=== PATIENT | female | born 1945 | race Caucasian/White ===

== ENCOUNTER → 2020-10-12 08:47 | Outpatient (CLI) | payer OTHER, SELFPAY ==
--- NOTE | ~2020-10-12 | DEXA_ITS ---
Bone Density Report Name: Daysi Walters Age: 75 Sex: Female Ethnicity: White Date of : 1945 Indication: osteopenia; parental hip fracture; hysterectomy; postmenopausal Referring Provider: WALTER MCFARLAND Study: Bone densitometry was performed. Exam Date: October 12, 2020 Accession number: [id number] Bone Density: Region BMD T-score Z-score Classification AP Spine (L1-L4) 1.119 0.7 3.0 Normal Femoral Neck (Left) 0.673 -1.6 0.4 Osteopenia Total Hip (Left) 0.875 -0.5 1.2 Normal Femoral Neck (Right) 0.643 -1.9 0.2 Osteopenia Total Hip (Right) 0.812 -1.1 0.6 Osteopenia Total Hip Mean 0.844 -0.8 0.9 Normal World Health Organization criteria for BMD impression classify patients as: Normal (T-score at or above -1.0), Osteopenia (T-score between -1.0 and -2.5), or Osteoporosis (T-score at or below -2.5). 10-year Fracture Risk(1): Major Osteoporotic Fracture 19% Hip Fracture 8.5% Reported Risk Factors: [place] (), Neck BMD=0.643, BMI=31.0, parental fracture (1) FRAX(R) Version 3.08. Fracture probability calculated for an untreated patient. Fracture probability may be lower if the patient has received treatment. Previous Exams: Region Exam Age BMD T-score BMD Change BMD Change Date g/cm2 vs Baseline vs Previous AP Spine(L1-L4) 10/12/2020 75 1.119 0.7 0.061* 0.061* 03/16/2016 71 1.058 0.1 Total Hip(Left) 10/12/2020 75 0.875 -0.5 0.018 0.018 03/16/2016 71 0.857 -0.7 Total Hip(Right) 10/12/2020 75 0.812 -1.1 0.007 0.007 03/16/2016 71 0.804 -1.1 *Denotes significance at 95% confidence level, LSC for AP Spine = 0.022 g/cm2, LSC for Total Hip = 0.027 g/cm2 Clinical Information Provided by Patient: Parent has had a hip fracture Has the following medical conditions: Hysterectomy Patient maximum height was 62.0 Menopause Age: 47 No regular weight bearing exercise Drinks caffeinated beverages Onset of menses at age 14 Number of children 1 Impression: The patient has low bone mass, based on the Right Femoral Neck T-score. The patient has an estimated ten-year risk of hip fracture of 8.5% and an estimated ten-year risk of major fracture of 19%, based on the WHO FRAX algorithm. The patient has risk factors, including: parental hip fracture. No significant bone loss was observed. Discussion: BONE DENSITY IS LOW AT ONE OR MORE SKELETAL SITES. THE PATIENT'
--- NOTE | ~2020-10-12 | MM_ITS ---
EXAMINATION: MM screening [facility] w justa HISTORY: Screening mammogram TECHNIQUE: Craniocaudal and mediolateral oblique 3-D tomosynthesis images were obtained and synthetic 2-D images were generated. CAD analysis was submitted and interpreted. COMPARISON: No prior mammogram is available for comparison at this institution. BREAST PARENCHYMAL COMPOSITION: There are scattered areas of fibroglandular density. FINDINGS: Diminished size and density of previously reported benign cyst posterior outer mid left efren ast since 05/25/2019. There is no evidence of suspicious mass, calcification, or architectural distorti on to suggest malignancy in either breast. There has been no suspicious interval change. IMPRESSION: 1. No mammographic evidence of malignancy. 2. Recommend routine screening mammography in one year. BI-RADS Category 2: Benign finding(s). Reviewed, dictated and finalized at location A.
== END ==
PROVIDERS: Visit Provider Family Medicine
DX: Z12.31 Encounter for screening mammogram for malignant neoplasm of breast (principal); Z78.0 Asymptomatic menopausal state; M85.851 Other specified disorders of bone density and structure, right thigh; M85.852 Other specified disorders of bone density and structure, left thigh
CPT/HCPCS: 77063; 77067; 77080

== ENCOUNTER → 2021-02-18 10:20 | Outpatient (CLI) | payer OTHER, SELFPAY ==
--- NOTE | ~2021-02-18 | XR_ITS ---
XR chest 2V DATE: 02/18/2021 10:43 INDICATION: Shortness of breath, chest congestion. Positive Covid test. TECHNIQUE: PA and lateral views COMPARISON: 04/19/2017 two-view chest FINDINGS: Borderline heart size. Aortic arch calcification. No hilar or mediastinal enlargement. No pulmonary infiltrate or consolidation or pleural effusion or pulmonary vascular congestion or pneu mothorax. Mild osteoarthritis at the left glenohumeral joint. Mild degenerative spurring of the thoracic and ernesto mbar spine. IMPRESSION: No active pulmonary disease Reviewed, dictated and finalized at location B. IMPRESSION: No active pulmonary disease
== END ==
PROVIDERS: PCP Family Medicine
DX: U07.1 COVID-19 (principal); R09.89 Other specified symptoms and signs involving the circulatory and respiratory systems; R06.02 Shortness of breath
CPT/HCPCS: 71046

== ENCOUNTER → 2021-06-18 15:40 | Outpatient (CLI) | payer OTHER, SELFPAY ==
--- NOTE | ~2021-06-18 | XR_ITS ---
XR knee RT min 4V 06/18/2021 15:55 Indication: Right knee pain Procedure: 4 views of the right knee Comparison: No prior studies for comparison. Findings: No fracture, subluxation or dislocation. Moderate joint effusion. No significant joint spac e narrowing. Impression: 1: Moderate joint effusion. Reviewed, dictated and finalized at location B. ALTERATIONS TAILOR Impression: 1: Moderate joint effusion.
== END ==
PROVIDERS: PCP Nurse Practitioner Gerontology; Visit Provider Nurse Practitioner Gerontology
DX: M25.561 Pain in right knee (principal)
CPT/HCPCS: 73564

== ENCOUNTER → 2021-07-15 14:05 | Outpatient (CLI) | payer OTHER, SELFPAY ==
--- NOTE | ~2021-07-15 | MR_ITS ---
EXAMINATION: MR knee RT wo con DATE: 07/15/2021 15:11 INDICATION: Right knee pain TECHNIQUE: Magnetic resonance imaging (MRI) of the right knee was performed without intravenous contr ast. Sequences included coronal PD-weighted FSE, coronal PD-weighted FS FSE, sagittal T2-weighted FS E, sagittal PD-weighted FS FSE and axial PD weighted fat saturated FSE. COMPARISON: None. FINDINGS: Medial compartment: Medial meniscus is normal. Deep chondral fissure at the anterior aspect of the medial tibial plateau. Additional less severe chondral fissuring and chondral surface regularity at the anterior weightbear ing medial femoral condyle. Lateral compartment: Small longitudinal horizontal tear at the junction of the anterior horn and anterior body of the late ral meniscus. Partial-thickness chondral fissure which appears to involve less than 50% the cartilage thickness at the central to posterior lateral tibial plateau as well as at the central weightbearing lateral femoral condyle. Patellofemoral compartment: Articular cartilage is normal. Ligaments and tendons: Anterior and posterior cruciate ligaments are normal. The medial collateral ligament and fibular heidi ateral ligament complex are normal. The extensor mechanism is normal. The visualized medial and later al hamstring tendons as well as the iliotibial band are normal. Fluid: Moderate-sized right knee joint effusion. Incomplete suprapatellar plical band. No loose osteochondra l bodies identified. Osseous/other: Normal marrow signal. No fracture or pathologic marrow replacing process. IMPRESSION: 1. Small longitudinal horizontal tear at the junction of the body and anterior horn of the lateral me niscus. 2. 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 3. Moderate-sized right knee joint effusion. Reviewed, dictated and finalized at location A. SH MENDER IMPRESSION: 1. Small longitudinal horizontal tear at the junction of the body and anterior horn of the lateral meniscus. 2. 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 3. Moderate-sized right knee joint effusion.
== END ==
PROVIDERS: PCP Family Medicine; Visit Provider Family Medicine
DX: M23.91 Unspecified internal derangement of right knee (principal); S83.281A Other tear of lateral meniscus, current injury, right knee, initial encounter; M17.11 Unilateral primary osteoarthritis, right knee; M94.261 Chondromalacia, right knee; M25.461 Effusion, right knee
CPT/HCPCS: 73721

== ENCOUNTER → 2021-12-02 15:30 | Outpatient (CLI) | payer OTHER, SELFPAY ==
--- NOTE | ~2021-12-02 | MM_ITS ---
EXAMINATION: MM screening [facility] BI w justa HISTORY: Screening mammogram TECHNIQUE: Craniocaudal and mediolateral oblique 3-D tomosynthesis images were obtained and synthetic 2-D images were generated. CAD analysis was submitted and interpreted. COMPARISON: 10/12/2020, 06/07/2019, 05/25/2019 BREAST PARENCHYMAL COMPOSITION: There are scattered areas of fibroglandular density. FINDINGS: There are stable left breast masses, consistent with benign findings. There is no suspiciou s mass, calcification, or architectural distortion to suggest malignancy in either breast. There has been no suspicious interval change. IMPRESSION: 1. No mammographic evidence of malignancy. 2. Recommend routine screening mammography in one year. BI-RADS Category 2: Benign finding(s). Reviewed, dictated and finalized at location A.
== END ==
PROVIDERS: PCP Family Medicine; Visit Provider Family Medicine
DX: Z12.31 Encounter for screening mammogram for malignant neoplasm of breast (principal)
CPT/HCPCS: 77063; 77067

== ENCOUNTER → 2022-01-27 10:28 | Outpatient (CLI) | payer OTHER, SELFPAY ==
--- NOTE | ~2022-01-27 | XR_ITS ---
EXAMINATION: XR chest 2V Exam Date/Time: 01/27/2022 10:48 CDT HISTORY: OTHER ASSISTED DRUG THERAPY Comparison: 02/10/2021. RESULT: Lines, tubes, and devices: None. Lungs and pleura: Ill-defined subsegmental bibasilar opacities. Cardiomediastinal silhouette: Stable. Other: No acute osseous or upper abdominal finding. IMPRESSION: Bibasilar opacities, commonly attributed to atelectasis. Infection not excluded. Reviewed, dictated and finalized at location K. IMPRESSION: Bibasilar opacities, commonly attributed to atelectasis. Infection not excluded .
== END ==
PROVIDERS: PCP Family Medicine
DX: Z51.81 Encounter for therapeutic drug level monitoring (principal); Z79.899 Other long term (current) drug therapy; R91.8 Other nonspecific abnormal finding of lung field
CPT/HCPCS: 71046

== ENCOUNTER 2022-08-25 14:41 | Outpatient (CLI) | payer OTHER, SELFPAY ==
--- NOTE | ~2022-08-25 | XR_ITS ---
EXAMINATION: XR tibia fibula RT 2V DATE: 08/25/2022 15:13 INDICATION: Medial right knee pain. TECHNIQUE: 2 views of right tibia and fibula were obtained. COMPARISON: Right knee radiographs 03/25/2022 FINDINGS: There is a total right knee arthroplasty without patellar resurfacing in near-anatomic alig nment. No fracture. No periprosthetic lucency to suggest loosening or infection. IMPRESSION: 1. Total right knee arthroplasty in near-anatomic alignment. Reviewed, dictated and finalized at location A.
--- NOTE | ~2022-08-25 | XR_ITS ---
EXAMINATION: XR knee RT min 4V DATE: 08/25/2022 15:14 INDICATION: Medial right knee pain. TECHNIQUE: 4 views of right knee were obtained. COMPARISON: Right knee radiographs 03/25/2022 FINDINGS: There is a total right knee arthroplasty without patellar resurfacing in near-anatomic alig nment. No periprosthetic lucency to suggest loosening or infection. No fracture. There are tiny osteo phytes of the patella. No knee joint effusion. IMPRESSION: 1. Total right knee arthroplasty in near-anatomic alignment. Reviewed, dictated and finalized at location A.
== END 2022-08-25 14:42 | disposition home or self-care (01) ==
LOC: ANHIMG 14:49
PROVIDERS: PCP Family Medicine; Visit Provider Nurse Practitioner Gerontology
DX: M25.569 Pain in unspecified knee (principal); M79.606 Pain in leg, unspecified; Z96.651 Presence of right artificial knee joint
CPT/HCPCS: 73564; 73590

== ENCOUNTER → 2023-01-15 13:55 | Outpatient (CLI) | payer OTHER, SELFPAY ==
--- NOTE | ~2023-01-15 | MM_ITS ---
EXAMINATION: MM screening [facility] BI w justa HISTORY: Screening mammogram TECHNIQUE: Craniocaudal and mediolateral oblique 3-D tomosynthesis images were obtained and synthetic 2-D images were generated. CAD analysis was submitted and interpreted. COMPARISON: 12/02/2021, 05/25/2019 BREAST PARENCHYMAL COMPOSITION: There are scattered areas of fibroglandular density. FINDINGS: No suspicious mass, calcification, or architectural distortion are identified in either efren ast to suggest malignancy. There has been no suspicious interval change. IMPRESSION: 1. No mammographic evidence of malignancy. 2. Recommend routine screening mammography in one year. BI-RADS Category 1: Negative Reviewed, dictated and finalized at location A.
== END ==
PROVIDERS: PCP Physician Assistant; Visit Provider Physician Assistant
DX: Z12.31 Encounter for screening mammogram for malignant neoplasm of breast (principal)
CPT/HCPCS: 77063; 77067

== ENCOUNTER 2023-01-18 08:00 | Outpatient (RCR) | payer OTHER, SELFPAY ==
--- NOTE | 2022-10-27 10:20 | PTOPEVAL1 ---
Assessment and note entered by Gabbi Perez, PT Evaluation Information Assessment Status Evaluation Diagnosis Pain in R knee and leg Onset prior to surgery chronic pain Subjective Information Patient reports she has attempted physical therapy in two other clinics. Patient currently using cane for gait and reporting pain as 10/10 in R knee and into lower leg. Pain causes difficulty with chores at home and ambulating increased distances in community. Patient reports prior to her knee surgery she would walk 4 to 5 miles a day . Patient goal is to decrease pain and reutrn to walking increased distances. Reported Pain Level Pain Score 10: Self Report Additional Pain Score Comments patient reports pain is worsened by standing, and canbe relieved with gentle movement. Assessment PT Clinical Summary Patient is 77 year old female referred to physical therapy due to R knee and radiating R lower leg pain. Patient currently rating pain as 10/10 start of session with relief in pain to 5/10 following therapeutic exercises. Patient presents with the following impairments: limited knee extension, back pain and limited back range of motion, R hip flexor/ extensor/ abductor weakness. Impairments are causing abnormalities in gait jody/speed and ability to ambulate increased distances in community. Radicular symptoms reported down R lower leg with lumbar flexion/extension. Recommending skilled physical therapy intervention 2x/wk for 4 wks to improve R knee and lumbar range of motion, improve R hip and knee strength in order to reduce pain and improve safety, step quality, and gait speed with community mobility. Plan of Care Interventions Gait Training,Hot Pack/Cold Pack,Manual Therapy, Neuro Re-education,Patient/Caregiver Education, Therapeutic Activities,Therapeutic Exercise Other Interventions cupping, taping, IASTM PT Services Indicated Yes Treatment Frequency and 2x/wk for 4 wks Duration These treatments will address the objective and functional deficits as defined above. The patient will be advanced safely and appropriately in order for the patient to progress towards his/her prior level of function. Additional exercises will be introduced and as well as a comprehensive home exercise program upon discharge, if needed, ?to ensure carryover of functional gains achieved in the clinic. This treatment plan has been reviewed and agreement upon by the patient.
--- NOTE | 2022-10-27 10:20 | OPREHPOC ---
Outpatient Therapy Plan of Care This is a Multidisciplinary Plan of Care that may contain components documented by all disciplines (PT, OT, and ST.) PT Problem 1 PT Problem #1 Knowledge Deficit PT Goal 1 Goal patient will demonstrate independence with home exercise program PT Problem 2 PT Problem #2 Pain PT Goal 1 Goal Patient will report pain of 4/10 with walking using straight cane PT Problem 3 PT Problem #3 Impaired Range of Motion PT Goal 1 Goal Patient will increase R knee extension to -2 PT Problem 4 PT Problem #4 Impaired Gait PT Goal 1 Goal Patient will ambulate 300 ft during 2 minute walk test with use of least restrictive device PT Goal 2 Goal Patient will report improved community ambulation tolerating 10 minutes gait with use of cane PT Problem 5 PT Problem #5 Impaired Strength PT Goal 1 Goal Patient will perform 20 reps RLE straight leg raise due to improvements in quad strength PT Goal 2 Goal Patient will perform RLE single leg stance for 10 seconds
--- NOTE | 2022-11-19 10:57 | PTOPPROG ---
Assessment and note entered by Sophie Martinez, PT, DPT Evaluation Information Assessment Status Progress Diagnosis Pain in R knee and leg Onset prior to surgery chronic pain Subjective Information Pt states her knee is not doing good. She states when she first stands up it feels like her youngblood bone is shoved up under her knee cap . She reports good compliance with her HEP. She states she is walking a little bit better, just not initially. Pt reports her pain as a 10/10 when looking at the Jeff and Zamorano pain scale. Assessment PT Clinical Summary Daysi presents to therapy today for her progress report following 7 visits of skilled therapy to treat her R knee and leg pain following a R TKA in January of 2022. Today she demonstrates slight improvements of her R knee and hip strength, improvements in her gait speed, and less pain today with her sit to stands. She continues to have RLE weakness, gait deviations, and decreased functional mobility all reportedly d/t pain. She demonstrates decreased carry over in between sessions which might be limiting her progress. She is progressing slowly towards her goals but reports excellent compliance with her HEP. Continuation of skilled therapy services are indicated to address the remaining deficits, to manage pain, and to return to PLOF without limitations. Plan of Care Interventions Gait Training,Hot Pack/Cold Pack,Manual Therapy, Neuro Re-education,Patient/Caregiver Educati, Therapeutic Activities,Therapeutic Exercise Other Interventions cupping, taping, IASTM PT Services Indicated Yes Treatment Frequency and 2x/wk for 4 wks Duration These treatments will address the objective and functional deficits as defined above. The patient will be advanced safely and appropriately in order for the patient to progress towards his/her prior level of function. Additional exercises will be introduced and as well as a comprehensive home exercise program upon discharge, if needed, ?to ensure carryover of functional gains achieved in the clinic. This treatment plan has been reviewed and agreement upon by the patient.
--- NOTE | 2022-12-02 10:48 | PCPTNOTE ---
Pt rescheduled her appt today for Wednesday at 10:15.
--- NOTE | 2022-12-23 08:53 | PTOPPROG ---
Assessment and note entered by Sophie Martinez, PT, DPT Evaluation Information Assessment Status Progress Diagnosis Pain in R knee and leg Onset prior to surgery chronic pain Subjective Information Pt states she is walking better but when she gets up she initially has excruciating pain. She continues to reports tightness and a sharp pain initially upon standing. She states when she walks it loosens up a bit. Pt reports a 0-2/10 in sitting, and a 8-9/10 initially upon standing. Assessment PT Clinical Summary Daysi presents to therapy today for her progress report following 14 visits of skilled therapy to treat her R knee and leg pain following a R TKA in January of 2022. Today she demonstrates improved knee ROM from 0-132 degs, improved gait speed during the 2 min walk distance, and improved hip strength in all planes. She continues to have decreased hamstring strength, increased knee valgus during all functional movements, and decreased strength on the L when compared to the R. Continuation of skilled services are indicated to progress towards therapy goals. Plan of Care Interventions Gait Training,Hot Pack/Cold Pack,Manual Therapy, Neuro Re-education,Patient/Caregiver Educati, Therapeutic Activities,Therapeutic Exercise Other Interventions cupping, taping, IASTM PT Services Indicated Yes Treatment Frequency and 2x/wk for 4 wks Duration These treatments will address the objective and functional deficits as defined above. The patient will be advanced safely and appropriately in order for the patient to progress towards his/her prior level of function. Additional exercises will be introduced and as well as a comprehensive home exercise program upon discharge, if needed, ?to ensure carryover of functional gains achieved in the clinic. This treatment plan has been reviewed and agreement upon by the patient.
--- NOTE | 2022-12-30 08:37 | PCPTNOTE ---
Pt's appt was cancelled due to no auth.
--- NOTE | 2023-01-11 10:15 | PCPTNOTE ---
Pt cacelled this morning due to illness.
--- NOTE | 2023-01-18 09:03 | PTOPPROG ---
Assessment and note entered by Sophie Martinez, PT, DPT Evaluation Information Assessment Status Evaluation Diagnosis Pain in R knee and leg Onset prior to surgery chronic pain Subjective Information Pt states her knee is still tight, but not as tight as it has been. She states it still hurt immediately upon standing but not like it has. Assessment PT Clinical Summary Daysi presents to therapy today for her progress report following 20 visits of skilled therapy to treat her R knee and leg pain following a R TKA in January of 2022. Today she demonstrates active knee ROM this is WNL and has good knee strength. She continues to demonstrates increased knee valgus during sit to stands, ambulation, and with functional transfers. She demonstrates decreased hip strength on the R. Continuation of skilled therapy services are indicated to continue progressing hip strength and limiting compensations. Plan of Care Interventions Gait Training,Hot Pack/Cold Pack,Manual Therapy, Neuro Re-education,Patient/Caregiver Educati, Therapeutic Activities,Therapeutic Exercise Other Interventions cupping, taping, IASTM PT Services Indicated Yes Treatment Frequency and 2x/wk for 8 visits pending follow up with ortho Duration These treatments will address the objective and functional deficits as defined above. The patient will be advanced safely and appropriately in order for the patient to progress towards his/her prior level of function. Additional exercises will be introduced and as well as a comprehensive home exercise program upon discharge, if needed, ?to ensure carryover of functional gains achieved in the clinic. This treatment plan has been reviewed and agreement upon by the patient.
--- NOTE | 2023-01-18 11:10 | PCPTNOTE ---
This treatment is being continued on visit number [id number]. Please see documentation on both accounts to view progress. Completed interventions, outcomes, and problems have been marked as Inactive to facilitate the copying of the Care plan routine for recurring accounts.
== END 2023-01-20 14:08 | disposition still patient (30) ==
LOC: ANHGOSHPT 08:00
PROVIDERS: PCP Family Medicine; Visit Provider Physician Assistant
DX: M25.569 Pain in unspecified knee (principal); M79.606 Pain in leg, unspecified
CPT/HCPCS: 97110; 97112; 97116; 97140; 97162; 97530; 99199

== ENCOUNTER 2023-03-24 11:28 | Outpatient (RCR) | payer OTHER, SELFPAY ==
--- NOTE | 2023-01-18 11:10 | PCPTNOTE ---
The treatment documented on this account is a continuation of the treatment documented on visit number [id number]. Please see documentation on both accounts to view progress. The Plan of Care has been transitioned and updated within the new V#. I have addressed and agree with the discipline specific Problems, Interventions, and Goals for the current certification period. Completed interventions, outcomes, and problems have been marked as Inactive to facilitate the copying of the Care plan routine for recurring accounts.
--- NOTE | 2023-03-22 08:38 | PTOPDC ---
Assessment and note entered by Sophie Martinez, PT, DPT Evaluation Information Assessment Status Discharge - Pt Not Present Subjective Information Pt last attended therapy on 01/13/23 at that time she was going to see ortho and stated she would come back if other requested. The clinic has not heard from the pt at this time. Assessment PT Clinical Summary Daysi completed 19 visits of skilled therapy from 10/27/22 to 01/09/23. She will be discharged at this time d/t no follow up with the clinic.
== END 2023-03-24 11:32 | disposition home or self-care (01) ==
LOC: ANHGOSHPT 11:28
PROVIDERS: PCP Family Medicine; Visit Provider Physician Assistant
DX: M25.569 Pain in unspecified knee (principal); M79.606 Pain in leg, unspecified
CPT/HCPCS: 99199

== ENCOUNTER 2023-12-21 11:27 | Outpatient (CLI) | payer OTHER, SELFPAY ==
[2023-12-21 12:34] LABS: Influenza A QL RT-PCR Negative (Negative); Influenza B QL RT-PCR Negative (Negative); RSV RNA, RT-PCR Negative (Negative); SARS-CoV-2 RNA PCR Positive (Negative)
== END 2023-12-21 11:28 | disposition home or self-care (01) ==
LOC: ANHLAB 11:28
PROVIDERS: PCP Family Medicine; Visit Provider Physician Assistant
DX: J02.9 Acute pharyngitis, unspecified (principal); Z20.822 Contact with and (suspected) exposure to COVID-19
CPT/HCPCS: 87637

== ENCOUNTER 2024-01-18 09:15 | Outpatient (RCR) | payer OTHER, SELFPAY ==
--- NOTE | 2023-12-31 09:51 | OPREHPOC ---
Outpatient Therapy Plan of Care This is a Multidisciplinary Plan of Care that may contain components documented by all disciplines (PT, OT, and ST.) PT Problem 1 PT Problem #1 Knowledge Deficit PT Goal 1 Goal 1. Patient will perform independent HEP Target Visit 3 PT Problem 2 PT Problem #2 Impaired Strength PT Goal 1 Goal 1. Pelvic floor strength 2/5 to decrease incontinence 2. Pelvic floor endurance 5 seconds to decrease incontinence 3. Patient able to contract abdominal muscles without compensation Target Visit 5 PT Problem 3 PT Problem #3 Impaired Functional ADLs PT Goal 1 Goal 1. Patient will report fecal incontinence no more than 1 time per month to allow for grocery shopping etc. Target Visit 5
--- NOTE | 2023-12-31 09:51 | PTOPEVAL1 ---
Assessment and note entered by Vee Melendrez DPT Evaluation Information Assessment Status Evaluation Diagnosis fecal incontinence ICD-10 Condition Codes (PT) Weakness R53.1,Urge incontinence N39.41 Subjective Information Pt reports fecal smearing/incontinence approximately 30 minutes following a BM. Unsure when it started. Voids 4-5 times a day and wakes up once at night. Can hold urge to void up to 30 minutes but often less. Typically does not have pain with urination. Leaks urine approximately 1 time a month and is a small drops when it occurs. BM was every other day until starting benefiber which has increased to daily. Smearing occurs every time. History of pelvic pain with pap smear, exam, etc. Pt has been 1 time, vaginal delivery. Unsure if she had any complications. Hysterectomy 30 years ago. No b/b issues. Reports she sometimes has a fear to go in the community or grocery shopping etc. due to the incontinence. Patient goal: know why I am getting the incontinence Diet: some water, vitamin water, small cup of decaf coffee in the morning, diet sunkist orange, intermittent unsweet tea. No alcohol. Eats 3 meals a day, snack in morning and afternoon (lots of chocolate and peanut butter). Does not eat meat often and not many dairy products. Some fruit. Waffles for breakfast, lunch is often soup, frozen dinners or dinner from a friend). Reported Pain Level Pain Score 0: Self Report Assessment PT Clinical Summary The patient is presenting to skilled therapy with fecal incontinence and very intermittent urge incontinence. She presents with decreased core strength and significantly increased pelvic floor strength (unable to contract on exam) which are contributing to her incontinence. She will highly benefit from therapy to address her impairments in order to reduce incontinence and improve function . Plan of Care Interventions Manual Therapy,Neuro Re-education,Patient/ Caregiver Education,Therapeutic Activities, Therapeutic Exercise PT Services Indicated Yes Treatment Frequency and 1 time a week for 5 visits Duration These treatments will address the objective and functional deficits as defined above. The patient will be advanced safely and appropriately in order for the patient to progress towards his/her prior level of function. Additional exercises will be introduced and as well as a comprehensive home exercise program upon discharge, if needed, ?to ensure carryover of functional gains achieved in the clinic. This treatment plan has been reviewed and agreement upon by the patient.
--- NOTE | 2024-01-27 14:04 | PCPTNOTE ---
Pt called to cancel appointment due to back pain.
--- NOTE | 2024-02-04 09:32 | PCPTNOTE ---
Patient called to cancel appointment 02/04/24 due to back pain. Will reschedule at a later date.
--- NOTE | 2024-03-28 13:46 | PTOPDC ---
Assessment and note entered by Vee Melendrez DPT Evaluation Information Assessment Status Discharge - Pt Not Present Diagnosis fecal incontinence ICD-10 Condition Codes (PT) Weakness R53.1,Urge incontinence N39.41 Subjective Information - Assessment PT Clinical Summary Patient has not attended therapy since 01/18/24. She will be discharged this date and need a new script to resume in the future. Plan of Care PT Services Indicated No
== END 2024-03-28 14:48 | disposition home or self-care (01) ==
LOC: ANHPT 09:15
PROVIDERS: PCP Family Medicine; Visit Provider Nurse Practitioner
DX: R15.9 Full incontinence of feces (principal); M62.89 Other specified disorders of muscle
CPT/HCPCS: 97110; 97112; 97161; 97530

== ENCOUNTER 2024-01-18 09:53 | Outpatient (CLI) | payer OTHER, SELFPAY ==
--- NOTE | ~2024-01-18 | MM_ITS ---
EXAMINATION: MM screening melisa BI w justa HISTORY: Screening TECHNIQUE: Craniocaudal and mediolateral oblique 3-D tomosynthesis images were obtained and synthetic 2-D images were generated. CAD analysis was submitted and interpreted. COMPARISON: Comparison to multiple prior studies sequentially, with oldest reviewed study dated 04/23. BREAST PARENCHYMAL COMPOSITION: Not dense: There are scattered areas of fibroglandular density. FINDINGS: There is no evidence of suspicious mass, calcification, or architectural distortion to sugg est malignancy in either breast. There has been no suspicious interval change. IMPRESSION: 1. No mammographic evidence of malignancy. 2. Recommend routine screening mammography in one year. BI-RADS Category 1: Negative Reviewed, dictated and finalized at location B.
== END 2024-01-18 09:54 ==
LOC: MICIMG 09:54
PROVIDERS: PCP Family Medicine; Visit Provider Family Medicine
DX: Z12.31 Encounter for screening mammogram for malignant neoplasm of breast (principal)
CPT/HCPCS: 77063; 77067

== ENCOUNTER 2024-07-07 07:21 | Outpatient (CLI) | payer MEDICARE, SELFPAY ==
--- NOTE | ~2024-07-07 | XR_ITS ---
EXAMINATION: XR_CERV2-3V_CR DATE: 07/07/2024 08:07 INDICATION: Neck pain. TECHNIQUE: 3 views of cervical spine were obtained. COMPARISON: None. FINDINGS: There is 4 degrees levocurvature of cervical spine. Vertebral body heights are normal. Ther e is mildly decreased disc height at C6-C7. There is multilevel severe facet joint osteoarthritis. Th ere is multilevel uncovertebral joint osteoarthritis, severe on the left at C5-C6 and bilaterally at C6-C7. No central canal stenosis or prevertebral soft tissue swelling. IMPRESSION: 1. Moderate cervical spondylosis. Reviewed, dictated and finalized at location A. ARD PEELER
--- OUTSIDE RECORDS SUMMARY | 2024-07-07 07:32 | XMS_ITS | Referral Summary ---
Author Organization [facility] al Address [address] [place] [address] Care Team Providers Care Information Systems Consultant Name Role Phone Beth Cordero MD Primary Care Provider Allergies Active Allergy Reactions Criticality Noted Date Comments Codeine Opioids - Morphine Analogues Medications alendronate (FOSAMAX) 70 mg tablet TAKE ONE TABLET BY MOUTH ONCE WEEKLY 01/28/2021 Active losartan (COZAAR) 25 mg tablet Take 25 mg by mouth daily 01/30/2021 Active acetaminophen (TylenoL) 325 mg tablet TAKE 1 TABLET NEEDED PRN Active Active Problems Problem Noted Date Diagnosed Date Compression fracture of lumbar vertebra 02/19/20 16 Fracture of first lumbar vertebra 01/02/2016 After-cataract with vision obscured 09/28/2014 Dry eyes 01/26/2014 Pseudophakia 04/18/2013 Pain in eye 04/11/2013 Social History Tobacco Use Types Packs/Day Years Used Date Smoking Tobacco: Never Personal Safety Answer Date Recorded Getting School Help Needed Not on file 07/17 Comments Unknown Sex and Gender Information Value Date Recorded Sex Assigned at Not on file 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 Gender Identity Not on file Sexual Orientation Not on file Last Filed Vital Signs Vital Sign Reading Time Taken Comments Blood Pressure 128/72 02/17/2021 3:31 PM CDT Pulse 57 02/17/2021 3:31 PM CDT Temperature 37.1 C (98.7 F) 02/17/2021 3:31 PM CDT Respiratory Rate - - Oxygen Saturation 98% 02/17/2021 3:31 PM CDT Inhaled Oxygen Concentration - - Weight 73.5 kg (162 lb) 02/17/2021 3:31 PM CDT Height 157.5 cm (5' 2 ) 02/17/2021 3:31 PM CDT Body Mass Index 29.63 02/17/2021 3:31 PM CDT Plan of Treatment Not on file Insurance [facility] Care Teams Information Systems Consultant Relationship Specialty Start Date End Date Beth Cordero MD [address] [place] [address] PCP - General 07/08/16
--- OUTSIDE RECORDS SUMMARY | 2024-07-07 07:32 | XMS_ITS | Patient Health Summary ---
Author Organization [facility] Address [address] [place] [address] Care Team Providers Care Airway Controller Name Role Phone Beth Cordero MD Primary Care Provider + Note from [facility],non-owned Affiliates and Associated Physician Practices is amultiple site organization consisting of ambulatory clinics and hospital sitesin [place], [place], [place] and [place]. This disclosure is being madepursuant to the Care Everywhere program and may not contain all information available regarding this patient. Last updated 18.[facility] Allergies No known active allergies Medications Be aware that medications may not be up to date on this document. Always verify current medications with the patient. No known medications Social History Tobacco Use Types Packs/Day Years Used Date Smoking Tobacco: Never Smokeless Tobacco: Never Sex and Gender Information Value Date Recorded Sex Assigned at Not on file Gender Identity Not on file Sexual Orientation Not on file Last Filed Vital Signs Vital Sign Reading Time Taken Comments Blood Pressure 144/90 10/17/2018 2:08 PM CDT Pulse 60 10/17/2018 2:08 PM CDT Temperature 36.9 C (98.5 F) 10/17/2018 2:08 PM CDT Respiratory Rate 16 10/17/2018 2:08 PM CDT Oxygen Saturation 96% 10/17/2018 2:08 PM CDT Inhaled Oxygen Concentration - - Weight 72.6 kg (160 lb) 10/17/2018 2:08 PM CDT Height 157.5 cm (5' 2 ) 10/17/2018 2:08 PM CDT Body Mass Index 29.26 10/17/2018 2:08 PM CDT Procedures * XR KNEE RIGHT 4VW OR MORE(Performed 01/27/2023) Performed for History of total right knee replacement * XR KNEE RIGHT 2VW OR LESS(Performed 03/25/2022) Performed for Status post right knee replacement * XR KNEE RIGHT 2VW OR LESS(Performed 02/25/2022) Performed for Total knee replacement status, right * BASIC METABOLIC PANEL (CALCIUM TOTAL)(Performed 11/05/2021) Performed for Encounter for long-term (current) use of medications * CBC W AUTO DIFFERENTIAL(Performed 11/05/2021) Performed for Encounter for long-term (current) use of medications Results * XR KNEE RIGHT 4VW OR MORE (01/27/2023 9:45 AM CDT) Anatomical Region Laterality Modality Lower Extremity Radiographic Shaneka ging 01/28/2023 12:5 6 PM CDT Impressions 01/28/2023 12:57 PM CDT IMPRESSION: Unchanged 2 component right knee arthroplasty in near anatomic alignment. Moderate-sized right knee effusion. THIS IS AN ELECTRONICALLY VERIFIED FINAL REPORT 01/28/2023 12:57 PM - Electronically signed by Jermaine Scott M.D. MF: [email or web address] Report ID: [id number] Reading Location: [id number] [facility] 01/28/2023 12:57 PM CDT [facility] DIAGNOSTIC IMAGING REPORT Name:MIGUEL A DAYSI Age:78 Ordering Provider:PROSPER FAM Primary Provider: Date of Exam:01/27/2023 [facility] No:[id number] Chart No:[id number] Exam:XR KNEE RIGHT 4VW OR MORE X-ray No:[id number] :1945 EXAM DESCRIPTION: XR KNEE RIGHT 4VW OR MORE REASON FOR STUDY: status post right knee replacement. Right knee osteoarthritis. Duration: 1 year FINDINGS: Four views submitted with comparison 03/25/2022. Redemonstrated is a 2 component right knee arthroplasty in near anatomic alignment. There are no fractures. Moderate-sized knee effusion is present. Procedure Note Jermaine Scott MD - 01/28/2023 [facility] DIAGNOSTIC IMAGING REPORT Name:MIGUEL A DAYSI Age:78 Ordering Provider:PROSPER FAM Primary Provider: Date of Exam:01/27/2023 Hosp No:[id number] Chart No:[id number] Exam:XR KNEE RIGHT 4VW OR MORE X-ray No:[id number] :1945 EXAM DESCRIPTION: XR KNEE RIGHT 4VW OR MORE REASON FOR STUDY: status post right knee replacement. Right knee osteoarthritis. Duration: 1 year FINDINGS: Four views submitted with comparison 03/25/2022. Redemonstrated is a 2 component right knee arthroplasty in near anatomic alignment. There are no fractures. Moderate-sized knee effusion is present. IMPRESSION IMPRESSION: Unchanged 2 component right knee arthroplasty in near anatomic alignment. Moderate-sized right knee effusion. THIS IS AN ELECTRONICALLY VERIFIED FINAL REPORT 01/28/2023 12:57 PM - Electronically signed by Jermaine Scott M.D. MF: [email or web address] Report ID: [id number] Reading Location: [id number] Prosper Fam MD DIAGNOSTIC IMAGING O RDERABLES * XR KNEE RIGHT 2VW OR LESS (03/25/2022 8:31 AM CDT) Only the most recent of2 resultswithin the time period is included. Anatomical Region Laterality Modality Lower Extremity Radiographic Shaneka ging 03/25/2022 5:01 PM CDT Impressions 03/25/2022 5:01 PM CDT IMPRESSION: Intact right knee arthroplasty without radiographic evidence of complication. Mild knee joint effusion. THIS IS AN ELECTRONICALLY VERIFIED FINAL REPORT 03/25/2022 5:01 PM - Electronically signed by Jama Cervantes M.D. BG: Report ID: [id number] Reading Location: [id number] Narrative 03/25/2022 5:01 PM CDT [facility] DIAGNOSTIC IMAGING REPORT Name:DAYSI WALTERS Age:77 Ordering Provider:PROSPER FAM Primary Provider: Date of Exam:03/25/2022 Hosp No:[id number] Chart No:[id number] Exam:XR KNEE RIGHT 2VW OR LESS X-ray No:[id number] :1945 EXAM DESCRIPTION: XR KNEE RIGHT 2VW OR LESS REASON FOR STUDY: Knee replacement in surgery. Pain, tightness, and burning sensation. Duration: January 2022 TECHNIQUE: 2 radiographic views acquired of the right knee. COMPARISON: 02/25/2022 FINDINGS: BONES/JOINTS: Intact right knee arthroplasty. No periprosthetic fracture. Overall alignment is appropriate. SOFT TISSUES: Mild knee joint effusion. OTHER: No other significant finding. Procedure Note Jama Cervantes MD - 03/25/2022 [facility] DIAGNOSTIC IMAGING REPORT Name:DAYSI WALTERS Age:77 Ordering Provider:PROSPER FAM Primary Provider: Date of Exam:03/25/2022 [facility] No:[id number] Chart No:[id number] Exam:XR KNEE RIGHT 2VW OR LESS X-ray No:[id number] :1945 EXAM DESCRIPTION: XR KNEE RIGHT 2VW OR LESS REASON FOR STUDY: Knee replacement in surgery. Pain, tightness, and burning sensation. Duration: January 2022 TECHNIQUE: 2 radiographic views acquired of the right knee. COMPARISON: 02/25/2022 FINDINGS: BONES/JOINTS: Intact right knee arthroplasty. No periprosthetic fracture. Overall alignment is appropriate. SOFT TISSUES: Mild knee joint effusion. OTHER: No other significant finding. IMPRESSION IMPRESSION: Intact right knee arthroplasty without radiographic evidence of complication. Mild knee joint effusion. THIS IS AN ELECTRONICALLY VERIFIED FINAL REPORT 03/25/2022 5:01 PM - Electronically signed by Jama Cervantes M.D. BG: Report ID: [id number] Reading Location: [id number] Prosper Fam MD DIAGNOSTIC IMAGING O RDERABLES * CBC WITH DIFFERENTIAL (11/05/2021 10:23 AM CDT) WBC 5.6 4.5 - 10.5 K/uL 11/05/2021 10:32 AM CDT [facility]) RBC 4.71 3.58 - 4.78 M/uL 11/05/2021 10:32 AM [facility] ([facility]) Hemoglobin 14.6 11.6 - 16.0 g/dL 11/05/2021 10:32 AM [facility] ([facility]) Hematocrit 44.3 35.0 - 48.0 % 11/05/2021 10:32 AM [facility] ([facility]) Platelet Count 203 141 - 380 K/uL 11/05/2021 10:32 AM [facility] ([facility]) MCV 94.1 83.1 - 97.1 fl 11/05/2021 10:32 AM [facility] ([facility]) MCH 31.0 28.6 - 32.6 pg 11/05/2021 10:32 AM [facility] ([facility]) MCHC 33.0 32.0 - 36.0 g/dL 11/05/2021 10:32 AM [facility] ([facility]) RDW 12.6 11.6 - 15.6 % 11/05/2021 10:32 AM [facility] ([facility]) Neutrophils % 60.5 50.0 - 70.0 % 11/05/2021 10:32 AM [facility] ([facility]) Lymphocytes % 30.0 18.0 - 38.0 % 11/05/2021 10:32 AM [facility] ([facility]) Monocytes % 7.9 4.0 - 12.0 % 11/05/2021 10:32 AM [facility] ([facility]) Eosinophils % 1.1 1.1 - 6.1 % 11/05/2021 10:32 AM [facility]) Basophils % 0.5 0.0 - 1.7 % 11/05/2021 10:32 AM [facility] ([facility]) Neutrophils Absolute 3.4 3.3 - 5.7 x10(9)/L 11/05/2021 10:32 AM [facility] ([facility]) Immature Granulocytes % 0.00 0.00 - 0.43 % 11/05/2021 10:32 AM [facility] ([facility]) Blood BLOOD SPECIMEN / Unknown Lab Venipuncture / Unknown 11/05/2021 10:23 AM CDT 11/05/2021 10:23 AM CDT Prosper Fam MD LAB - HEMATOLOGY ORD ERABLES [facility]) [address] [place] [address] * (ABNORMAL) BASIC METABOLIC PANEL (CALCIUM TOTAL) (11/05/2021 10:23 AM CDT) Glucose 113(H) 70 - 100 mg/dL 11/05/2021 10:53 AM CDT [facility] BUN 21(H) 7 - 17 mg/dL 11/05/2021 10:53 AM CDT [facility] Creatinine 0.70 0.52 - 1.04 mg/dL 11/05/2021 10:53 AM CDT [facility] Sodium 143 137 - 145 mmol/L 11/05/2021 10:53 AM CDT [facility] Potassium 4.2 3.5 - 5.1 mmol/L 11/05/2021 10:53 AM CDT [facility] Chloride 108(H) 98 - 107 mmol/L 11/05/2021 10:53 AM CDT [facility] CO2 29 22 - 30 mmol/L 11/05/2021 10:53 AM CDT [facility] Calcium 9.1 8.4 - 10.2 mg/dL 11/05/2021 10:53 AM CDT [facility] eGFR >60 >60 mL/min/1.73 m2 11/05/2021 10:53 AM CDT [facility] Blood BLOOD SPECIMEN / Unknown Lab Venipuncture / Unknown 11/05/2021 10:23 AM CDT 11/05/2021 10:23 AM CDT Narrative [facility] - 11/05/2021 10:53 AM CDT It is recommended that for: GFR values greater than 60 mL/min/1.73 sq.meters - no additional renal evaluation is required. GFR values less than 60 mL/min/1.73 sq.meters - complete evaluation for renal disease. GFR values less than 30 mL/min/1.73 sq.meters - consultation with a Nailer Hand. Prosper Fam MD LAB - CHEMISTRY YG BRAVO [facility] [address] [place] [address] Care Teams Airway Controller Relationship Specialty Start Date End Date Beth Cordero MD [address] [place] [address] PCP - General Family Medicine 10/17/18
--- OUTSIDE RECORDS SUMMARY | 2024-07-07 07:32 | XMS_ITS | Clinical Summary ---
Author Organization [address] Address [address] [place] [address] Phone Care Team Providers Care Venture Capital Analyst Name Role Phone Beth Cordero MD Primary Care Provider [phone]- [phone] Allergies Active Allergy Reactions Criticality Noted Date Comments Codeine Vomiting High 02/04/2022 Respiratory Distress - Required Narcan Meperidine Vomiting High 02/10/2022 Respiratory Distress - Required Narcan Hydromorphone Vomiting High 02/10/2022 Respiratory Distress - Required Narcan Morphine Other (see Comments) High 01/06/2022 MORPHINE ANALOGUES, SPECIFIC ALLERGEN [employer] Respiratory Distress - Required Narcan Oxycodone Vomiting High 02/10/2022 Respiratory Distress Tramadol Vomiting High 02/10/2022 Respiratory Distress - Required Narcan Medications losartan (COZAAR) 25 MG Tablet Take 25 mg by mouth daily. Active alendronate (FOSAMAX) 70 MG Tablet TAKE 1 TABLET BY MOUTH ONE TIME PER WEEK 2 Active Cholecalciferol (VITAMIN D-3 PO) Take by mouth. Active zinc gluconate 50 MG Tablet Take 50 mg by mouth once a week. Active ibuprofen (MOTRIN) 600 MG Tablet Take 600 mg by mouth every 8 hours as needed. Active acetaminophen (TYLENOL) 500 MG Tablet Take 500 mg by mouth every 4 hours as needed. Active HYDROmorphone (DILAUDID) 2 MG TabletIndication s:S/P total knee replacement not using cement, right Take 1 Tablet by mouth every 6 hours as needed for Moderate or more severe pain. 20 Tablet 2 Active aspirin EC 81 MG Tablet Delayed Response Take 1 Tablet by mouth daily. 42 Tablet 2 Active docusate sodium 100 MG Capsule Take 100 mg by mouth 2 times daily. 20 Capsule 2 Active gabapentin (NEURONTIN) 100 MG Capsule Take 3 Capsules by mouth 3 times daily. 300 mg po TID 90 Capsule 1 2 Active Active Problems Problem Noted Date Diagnosed Date S/P total knee replacement not using cement, rig ht 02/10/2022 Social History Tobacco Use Types Packs/Day Years Used Date Smoking Tobacco: Never Smokeless Tobacco: Never Tobacco Cessation:Counseling Given: Not Answered Alcohol Use Standard Drinks/Week Comments Not Currently 0 (1 standard drink = 0.6 oz pur e alcohol) Comments Unknown Sex and Gender Information Value Date Recorded Sex Assigned at Not on file Legal Sex Female 11:15 AM CDT Gender Identity Not on file Sexual Orientation Not on file Last Filed Vital Signs Vital Sign Reading Time Taken Comments Blood Pressure 133/80 02/11/2022 11:40 AM CDT Pulse 83 01/27/2023 9:49 AM CDT Temperature 36.9 C (98.4 F) 01/27/2023 9:49 AM CDT Respiratory Rate 20 02/11/2022 11:40 AM CDT Oxygen Saturation 94% 01/27/2023 9:49 AM CDT Inhaled Oxygen Concentration - - Weight 70.8 kg (156 lb) 01/27/2023 9:49 AM CDT Height 157.5 cm (5' 2 ) 01/27/2023 9:49 AM CDT Body Mass Index 28.53 01/27/2023 9:49 AM CDT Plan of Treatment Health Maintenance Due Date Last Done Comments DEXA Bone Density 1945 Hepatitis C Virus (HCV) Screening 1945 TdaP Immunization 1945 Pneumococcal Immunization (5 0+ years) (1 of 1 - PCV) 1997 Zoster Immunization (2 of 3) 09/21/2018 07/27/2018 Respiratory Syncytial Virus (RSV) Immunization (Adult) (1 - 1-dose 75+ series) 2022 Influenza Immunization (#1) 2024 08/3 05/2021, 05/11/2021 SARS-COV-2 Immunization (3 - 2023- season) 2024 08/16/2020, 07/19/2020 Hepatitis B Immunization Aged Out No longer eligible based on patient's age to complete this topic Meningococcal Immunization (ACWY) Aged Out No longer eligible b ased on patient's age to complete this topic Rotavirus Immunization Aged Out No lo nger eligible based on patient's age to complete this topic Medical Devices Implanted Type Area Director University Device Identifier Shelf Expiration Date Model / Serial / Lot Att Ps Fem Rt Sz 4 Por [id number] - [id number] Implanted:Qty : 1 on 02/10/2022 by Prosper Sanchez MD at [facility] IMPLANT Right: Knee [employer] 08/21/2030 [id number] / [id number] / [id number] Att Rp Tibial Base Sz 4 Por [id number] - [id number] Implanted:Qty : 1 on 02/10/2022 by Prosper Sanchez MD at [facility] IMPLANT Right: Knee [employer] 11/20/2030 [id number] / [id number] / [id number] Att Tib Ins Rt Plt P/S 4 6mm [id number] - [id number] Implanted:Qty : 1 on 02/10/2022 by Prosper Sanchez MD at [facility] IMPLANT Right: Knee [employer] 12/21/2026 [id number] / [id number] / [id number] Insurance MEDICARE C [employer] Care Teams Venture Capital Analyst Relationship Specialty Start Date End Date Rostovtseva, Beth, MD [address] [facility] [address] [place] [address] PCP - General Family Medicine 01/14/22
--- OUTSIDE RECORDS SUMMARY | 2024-07-07 07:32 | XMS_ITS | Encounter Summary ---
Author Organization [facility] Address [address] [place] [address] [place] [address] Phone Care Team Providers Care Rebar Fabricator Name Role Phone Beth Cordero MD Primary Care Provider +1- [phone] Reason for Visit * Reason Comments Medication Refill Encounter Details Date Type Department Care Team (Late st Contact Info) Description 03/22/2022 Refill [place] [id number] [place] [address] [place] [address] [place] [address] Medication Refill Social History Tobacco Use Types Packs/Day Years Used Date Smoking Tobacco: Never Smokeless Tobacco: Never Alcohol Use Standard Drinks/Week Comments Not Currently 0 (1 standard drink = 0.6 oz pur e alcohol) Comments Unknown Sex and Gender Information Value Date Recorded Sex Assigned at Not on file Legal Sex Female 11:15 AM CDT Gender Identity Not on file Sexual Orientation Not on file COVID-19 Exposure Response Date Recorded In the last 10 days, have yo u been in contact with someone who was confirmed or suspected to have Coronavirus/COVID-19? No / Unsure 03/25/2022 8:39 AM CDT documented as of this encounter Plan of Treatment Not on file documented as of this encounter Visit Diagnoses Not on filedocumented in this encounter Care Teams Rebar Fabricator Relationship Specialty Start Date End Date Beth Cordero MD [address] [place] [address] PCP - General Family Medicine 01/14/22 documented as of this encounter
--- OUTSIDE RECORDS SUMMARY | 2024-07-07 07:32 | XMS_ITS | Clinical Summary ---
Author Organization [facility] Address [address] [place] [address] Care Team Providers Care Bowling Alley Operator Name Role Phone Beth Cordero MD Primary [...] 01/26/2014 Pseudophakia 04/18/2013 Pain in eye 04/11/2013 Surgical History Surgery Date Site/Laterality Comments ARM SURGERY Right MELANOMA RESECTION Medical History Medical History Date Comments Hypertension Family History Medical History Relation Name Comments Hypertension Brother 1 Family history of hypertension - (Added by TW Conv) Cancer Brother 2 Family history of malignant neoplasm - (Added by TW Conv) Arthritis Mother Family history of arthritis - (Added by TW Conv) Diabetes Mother Family history of diabetes mellitus - (Added by TW Conv) Heart disease Mother Family history of cardiac disorder - (Added by TW Conv) Hypertension Mother Family history of hypertension - (Added by TW Conv) Hypertension Sister 1 Family history of hypertension - (Added by TW Conv) Diabetes Sister 2 Family history of diabetes mellitus - (Added by TW Conv) Relation Name Status Comments Brother 1 Brother 2 Mother Sister 1 Sister 2 Social History Tobacco Use Types Packs/Day Years Used Date Smoking Tobacco: Never Personal Safety Answer Date Recorded Getting School Help Needed Not on file 07/17 Comments Unknown Sex and Gender Information Value Date Recorded Sex Assigned at Not on file 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
--- OUTSIDE RECORDS SUMMARY | 2024-07-07 07:32 | XMS_ITS | Encounter Summary ---
Author Organization [facility] Address [address] [place] [address] [place] [address] Phone Care Team Providers Care Sugar Mixer Name Role Phone Beth Cordero MD Primary Care Provider +1- [phone] Reason for Visit * Reason Comments Medication Refill Encounter Details Date Type Department Care Team (Late st Contact Info) Description 05/04/2022 Refill [place] [facility] [id number] [facility] [place] [address] [place] [address] [place] [address] Medication Refill Social History Tobacco [...] suspected to have Coronavirus/COVID-19? No / Unsure 05/04/2022 10:48 AM SCHOOL ADMINISTRATOR documented as of this encounter Plan of Treatment Not on file documented as of this encounter Visit Diagnoses Not on filedocumented in this encounter Care Teams Sugar Mixer Relationship Specialty Start Date End Date Beth Cordero MD [address] [place] [address] PCP - General Family Medicine 01/14/22 documented as of this encounter
--- OUTSIDE RECORDS SUMMARY | 2024-07-07 07:32 | XMS_ITS | Referral Summary ---
Author Organization [facility] Address [address] [place] [address] Care Team Providers Care Care Professional Name Role Phone Beth Cordero MD Primary Care Provider + Source Comments [facility],non-owned Affiliates and Associated Physician Practices is amultiple site organization consisting of ambulatory clinics and hospital sitesin [place], [place], [place] and [place]. This disclosure is being madepursuant to the Care Everywhere program and may not contain all information available regarding this patient. Last updated 18.[facility] Allergies No known active allergies Medications Be [...] Mass Index 29.26 10/17/2018 2:08 PM CDT Plan of Treatment Not on file Care Teams Care Professional Relationship Specialty Start Date End Date Beth Cordero MD [address] [place], [place] [id number] PCP - General Family Medicine 10/17/18
--- OUTSIDE RECORDS SUMMARY | 2024-07-07 07:32 | XMS_ITS | Encounter Summary ---
Author Organization [facility] Address [address] [place] [address] [place] [address] Phone Care Team Providers Care Solid Waste Truck Driver Name Role Phone Beth Cordero MD Primary Care Provider +1- [phone] Reason for Visit * Reason Comments Medication Refill Encounter Details Date Type Department Care Team (Late st Contact Info) Description 06/23/2022 Refill [facility] [address] [facility] [place] [address] Candice Farris, JOJO [address] [place] [address] Medication Refill Social History Tobacco [...] on file Sexual Orientation Not on file documented as of this encounter Plan of Treatment Not on file documented as of this encounter Visit Diagnoses Not on filedocumented in this encounter Care Teams Solid Waste Truck Driver Relationship Specialty Start Date End Date Beth Cordero MD [address] [place], [place] [id number] PCP - General Family Medicine 01/14/22 documented as of this encounter
--- OUTSIDE RECORDS SUMMARY | 2024-07-07 07:32 | XMS_ITS | Clinical Summary ---
Author Organization [facility] Address [address] [facility] [place] [address] Care Team Providers Care Teacher Emotionally Impaired Name Role Phone Beth Cordero MD Primary Care Provider + Source Comments [facility],non-owned Affiliates and Associated Physician Practices is amultiple site organization consisting of ambulatory clinics and hospital sitesin [place], [place], [place] and [place]. This disclosure is being madepursuant to the Care Everywhere program and may not contain all information available regarding this patient. Last updated 18.[facility] Allergies No known active allergies Medications Be aware that medications may not be up to date on this document. Always verify current medications with the patient. No known medications Family History Medical History Relation Name Comments Cancer - Skin, Melanoma Brother Depression Brother Hypertension Brother Diabetes - Type 2 Mother Hypertension Mother Diabetes - Type 2 Sister Hypertension Sister Relation Name Status Comments Brother Mother Sister Social History Tobacco Use Types Packs/Day Years [...] 10/17/2018 2:08 PM CDT Plan of Treatment Health Maintenance Due Date Last Done Comments BONE DENSITY TESTING 1945 MEDICARE AWV 12 MONTHS 1945 HEPATITIS C SCREENING 01/13/1965 DTAP/TDAP/TD VACCINES (1 - Tdap) 1966 PNEUMOCOCCAL VACCINE 50+ (1 of 1 - PCV) 1997 ZOSTER VACCINE (1 of 2) 1997 Respiratory Syncytial Virus (RSV) Vaccine Pt: or over 60 yrs (1 - 1-dose 75+ series) 2022 COVID-19 VACCINE ( - 2023-2 5 season) 2024 INFLUENZA VACCINE (#1) 2024 DEPRESSION SCREENING 05/24/2024 HEPATITIS B VACCINE Aged Out No longe r eligible based on patient's age to complete this topic HIB VACCINE Aged Out No longer eligi ble based on patient's age to complete this topic HPV VACCINE Aged Out No longer eligi ble based on patient's age to complete this topic MENINGOCOCCAL (Group B) VACCINE Aged Out No longer eligible based on patient's age to complete this topic MENINGOCOCCAL VACCINE Aged Out No juan estevan eligible based on patient's age to complete this topic Care Teams Teacher Emotionally Impaired Relationship Specialty Start Date End Date Beth Cordero MD [address] [place] [address] PCP - General Family Medicine 10/17/18
[2024-07-07 08:36] LABS: Basophils Percent Auto 0.8 % (0.2-1.2); Eosinophils Absolute Auto 0.1 K/mm3 (0-0.3); Eosinophils Percent Auto 2.4 % (0-4.4); Hematocrit 42.2 % (37.0-47.0); Hemoglobin 13.8 g/dL (12.0-15.0); Immature Granulocyte Absolute 0.01 K/mm3 (0.00-0.031); Immature Granulocyte Percent A 0.2 % (0-0.5); Lymphocytes Absolute Auto 1.79 K/mm3 (0.9-3.2); Lymphocytes Percent Auto 36.2 % (18.3-44.2); Mean Corpuscular HGB Conc 32.7 g/dl (32-36); Mean Corpuscular Hemoglobin 30.9 pg (26-34); Mean Corpuscular Volume 94.6 fl (80-100); Mean Platelet Volume 11.8 fl (7.4-10.4); Monocytes Absolute Auto 0.4 K/mm3 (0.1-0.6); Monocytes Percent Auto 7.3 % (2.6-8.5); Neutrophils Absolute Auto 2.6 K/mm3 (1.3-6.7); Neutrophils Percent Auto 53.1 % (45.5-73.1); Platelet Count Result 194 k/mm3 (150-375); Red Blood Count 4.46 M/mm3 (4.2-5.4); Red Cell Distribution Width 12.7 % (11.5-14.5); White Blood Count 4.9 K/mm3 (4.5-10.0)
[2024-07-07 08:43] LABS: Alanine Aminotransferase 24 U/L (6-35); Albumin Level 4.1 g/dL (3.5-5.1); Alkaline Phosphatase 55 U/L (38-126); Anion Gap 9 mmol/L (4-12); Aspartate Amino Transferase 25 U/L (14-36); Bilirubin,Total 1.5 mg/dL (0.2-1.3); Blood Urea Nitrogen 17 mg/dL (7-17); Calcium 9.3 mg/dL (8.4-10.2); Carbon Dioxide 27 mmol/L (22-30); Chloride 107 mmol/L (98-107); Cholesterol 200 mg/dL (0-200); Estimated Glomerular Filt Rate > 60; Glucose 96 mg/dL (65-110); HDL Direct 50 mg/dL; Potassium 4.3 mmol/L (3.4-5.0); Sodium 143 mmol/L (137-145); Triglycerides 105 mg/dL (<150)
[2024-07-07 08:54] LABS: LDL Cholesterol Direct 110 mg/dL
[2024-07-07 09:47] LABS: Hemoglobin A1C 5.7 % (<5.7)
== END 2024-07-07 07:22 | disposition home or self-care (01) ==
PROVIDERS: PCP Family Medicine; Visit Provider Physician Assistant
DX: M43.02 Spondylolysis, cervical region (principal); E78.2 Mixed hyperlipidemia; I10 Essential (primary) hypertension; R73.09 Other abnormal glucose
CPT/HCPCS: 36415; 72040; 80053; 80061; 83036; 85025

== ENCOUNTER 2024-07-27 13:35 | Outpatient (CLI) | payer MEDICARE, SELFPAY ==
--- NOTE | ~2024-07-27 | CT_ITS ---
EXAMINATION: CT abdomen pelvis w con DATE: 07/27/2024 14:03 INDICATION: New onset abdominal cramping. Fecal seepage. TECHNIQUE: Computed tomography (CT) of the abdomen and pelvis was performed with 100 mL Omnipaque-350 intravenous contrast. Automated exposure control and iterative reconstruction technique were employe d. The dose-length product was 563.15 mGy-cm. COMPARISON: 11/21/2015 FINDINGS: There are couple calcified right lower lobe nodules consistent with old granulomatous disease. 6 mm n oncalcified pleural-based nodule at the posterior right lower lobe. Heart size is normal. Chronic min imal pericardial effusion. No pleural effusion. Multiple calcified gallstones within the normal decom pressed gallbladder. Liver, spleen, pancreas, bilateral adrenal glands are normal. There are small pa rapelvic and parenchymal cysts at both kidneys. Decompressed bladder is normal. The uterus is not charmaine ntified and has likely been surgically resected. Bowels including the appendix are normal. No free in traperitoneal gas or fluid. No pathologically enlarged abdominal or pelvic lymphadenopathy. Interval healing of a now chronic L1 burst fracture with mild anterior vertebral body height loss and retropul arianna resulting in mild central canal stenosis. IMPRESSION: 1. No acute intra-abdominal/pelvic process. 2. Cholelithiasis. 3. Indeterminate 6 mm pleural-based nodule at the right lower lobe. If the patient is low risk for ernesto ng cancer, no follow-up is needed. If the patient is high risk (i.e., history of smoking or asbestos or significant radiation exposure), optional follow-up chest CT could be considered at 12 months. Reviewed, dictated and finalized at location L. SALES MANAGER IMPRESSION: 1. No acute intra-abdominal/pelvic process. 2. Cholelithiasis. 3. Indeterminate 6 mm pleural-based nodule at the right lower lobe. If the joann ent is low risk for lung cancer, no follow-up is needed. If the patient is high risk (i.e., history of smoking or asbestos or significant radiation exposure), optional follow-up chest CT could be considered at 12 months.
--- OUTSIDE RECORDS SUMMARY | 2024-07-27 14:54 | XMS_ITS | Encounter Summary ---
Author Organization [facility] Address [address] [place] [address] [place] [address] Phone Care Team Providers Care Motor Vehicle Representative Name Role Phone Beth Cordero MD Primary Care Provider +1- [phone] Reason for Visit * Reason Comments Medication Refill Encounter Details Date Type Department Care Team (Late st Contact Info) Description 06/23/2022 Refill [facility] [address] [place] [address] Candice Farris, JOJO [address] [place] [address] Medication Refill Social History Tobacco [...] on filedocumented in this encounter Care Teams Motor Vehicle Representative Relationship Specialty Start Date End Date Beth Cordero MD [address] [place], [place] [id number] PCP - General Family Medicine 01/14/22 documented as of this encounter
--- OUTSIDE RECORDS SUMMARY | 2024-07-27 14:54 | XMS_ITS | Clinical Summary ---
Author Organization [address] Address [address] [place] [address] Phone Care Team Providers Care Shotgun Shell Assembly Machine Operator Name Role Phone Beth Cordero MD Primary Care Provider +1- [phone] Allergies Active Allergy Reactions Criticality Noted Date [...] this topic Medical Devices Implanted Type Area Production Line Welder Device Identifier Shelf Expiration Date Model / Serial / Lot Att Ps Fem Rt Sz 4 Por [id number] - [id number] Implanted:Qty : 1 on 02/10/2022 by Prosper Sanchez MD at [facility] IMPLANT Right: Knee [employer] 08/21/2030 [id number] / [id number] / [id number] Att Rp Tibial Base Sz 4 Por [id number] - [id number] Implanted:Qty : 1 on 02/10/2022 by Prosper Sanchez MD at [facility] IMPLANT Right: Knee [employer] 11/20/2030 [id number] / [id number] / [id number] Att Tib Ins Rt Plt P/S 4 6mm [id number] - [id number] Implanted:Qty : 1 on 02/10/2022 by Prosper Sanchez MD at [facility] IMPLANT Right: Knee [employer] 12/21/2026 [id number] / [id number] / [id number] Insurance MEDICARE C [employer] Care Teams Shotgun Shell Assembly Machine Operator Relationship Specialty Start Date End Date Rostovtseva, Beth, MD [address] [facility] [address] [facility] [address] [place] [address] PCP - General Family Medicine 01/14/22
--- OUTSIDE RECORDS SUMMARY | 2024-07-27 14:54 | XMS_ITS | Encounter Summary ---
Author Organization [facility] Address [address] [place] [address] Phone Care Team Providers Care Business Asst Name Role Phone Beth Cordero MD Primary Care Provider +1- [phone] Reason for Visit * Reason Comments Medication Refill Encounter Details Date Type Department Care Team (Late st Contact Info) Description 05/04/2022 Refill [facility] [address] [place] [address] [place] [address] [place] [address] Medication Refill Social History Tobacco [...] Coronavirus/COVID-19? No / Unsure 05/04/2022 10:48 AM EXECUTIVE ASSISTANT TO PRESIDENT documented as of this encounter Plan of Treatment Not on file documented as of this encounter Visit Diagnoses Not on filedocumented in this encounter Care Teams Business Asst Relationship Specialty Start Date End Date Beth Cordero MD [address] [place] [address] PCP - General Family Medicine 01/14/22 documented as of this encounter
--- OUTSIDE RECORDS SUMMARY | 2024-07-27 14:54 | XMS_ITS | Referral Summary ---
Author Organization [facility] Address [address] [place] [address] Care Team Providers Care Air Surveillance Operator Name Role Phone Beth Cordero MD [...] on file Legal Sex Female 1:[address] WORK[address] Gender Identity Not on file Sexual Orientation [...] Plan of Treatment Not on file Insurance [facility] Care Teams Air Surveillance Operator Relationship Specialty Start Date End Date Beth Cordero MD [address] [place] [address] PCP - General 07/08/16
--- OUTSIDE RECORDS SUMMARY | 2024-07-27 14:54 | XMS_ITS | Referral Summary ---
Author Organization [facility] Address [address] [facility] [place] [address] Care Team Providers Care Usability Architect Name Role Phone Beth Cordero MD Primary Care Provider + Source Comments [facility] [employer],non-owned Affiliates and Associated Physician Practices is amultiple site organization consisting of ambulatory clinics and hospital sitesin [place], [place], [place] and [place]. This disclosure is being madepursuant to the Care Everywhere program and may not contain all information available regarding this patient. Last updated 18.[facility] [employer] Allergies No known active allergies Medications Be [...] of Treatment Not on file Care Teams Usability Architect Relationship Specialty Start Date End Date Beth Cordero MD [address] [place], [place] [id number] PCP - General Family Medicine 10/17/18
--- OUTSIDE RECORDS SUMMARY | 2024-07-27 14:54 | XMS_ITS | Patient Health Summary ---
Author Organization [facility] Address [address] [facility] [place] [address] Care Team Providers Care Advertising Photographer Name Role Phone Beth Cordero MD Primary Care Provider + Note from [facility],non-owned Affiliates and Associated Physician Practices is amultiple site organization consisting of ambulatory clinics and hospital sitesin [place], [place], [place] and [place]. This disclosure is being madepursuant to the Care Everywhere program and may not contain all information available regarding this patient. Last updated 18.[facility] [employer] [facility] Allergies No known active allergies Medications Be [...] Jermaine Scott M.D. MF: NIEVES Report ID: [id number] Reading Location: [id number] [facility] 01/28/2023 12:57 PM CDT [facility] DIAGNOSTIC IMAGING REPORT Name:MIGUEL A DAYSI Age:78 Ordering Provider:PROSEPR FAM Primary Provider: Date of Exam:01/27/2023 [facility] No:[id number] Chart No:[id number] Exam:XR KNEE RIGHT 4VW OR MORE X-ray No:[id number] :1945 EXAM DESCRIPTION: XR KNEE RIGHT 4VW OR MORE REASON FOR STUDY: status post right knee replacement. Right knee osteoarthritis. Duration: 1 year FINDINGS: Four views submitted with comparison 03/25/2022. Redemonstrated is a 2 component right knee arthroplasty in near anatomic alignment. There are no fractures. Moderate-sized knee effusion is present. Procedure Note Jermaine Scott MD - 01/28/2023 [facility] DIAGNOSTIC IMAGING REPORT Name:MIGUEL A DAYSI Age:78 Ordering Provider:PROSPER FAM Primary Provider: Date of Exam:01/27/2023 Hosp No:[id number] Chart No:[id number] Exam:XR KNEE RIGHT 4VW OR MORE X-ray No:[id number] :1945 EXAM DESCRIPTION: XR KNEE RIGHT 4VW [...] Jermaine Scott M.D. MF: NIEVES Report ID: [id number] Reading Location: [id number] Prosper Fam MD DIAGNOSTIC IMAGING O RDERABLES [...] by Jama Cervantes M.D. BG: Report ID: [id number] Reading Location: [id number] Narrative 03/25/2022 5:01 PM CDT [facility] DIAGNOSTIC IMAGING REPORT Name:DAYSI WALTERS Age:77 Ordering Provider:PROSPER FAM Primary Provider: Date of Exam:03/25/2022 Hosp No:[id number] Chart No:[id number] Exam:XR KNEE RIGHT 2VW OR LESS X-ray No:[id number] :1945 EXAM DESCRIPTION: XR KNEE RIGHT 2VW [...] Procedure Note Jama Cervantes MD - 03/25/2022 [facility] DIAGNOSTIC IMAGING REPORT Name:DAYSI WALTERS Age:77 Ordering Provider:PROSPER FAM Primary Provider: Date of Exam:03/25/2022 [facility] No:[id number] Chart No:[id number] Exam:XR KNEE RIGHT 2VW OR LESS X-ray No:[id number] :1945 EXAM DESCRIPTION: XR KNEE RIGHT 2VW [...] by Jama Cervantes M.D. BG: Report ID: [id number] Reading Location: [id number] Prosper Fam MD DIAGNOSTIC IMAGING O RDERABLES * CBC WITH DIFFERENTIAL (11/05/2021 10:23 AM CDT) WBC 5.6 4.5 - 10.5 K/uL 11/05/2021 10:32 AM CDT [facility]) RBC 4.71 3.58 - 4.78 M/uL 11/05/2021 10:32 AM [facility] ([facility]) Hemoglobin 14.6 11.6 - 16.0 g/dL 11/05/2021 10:32 AM [facility] ([facility]) Hematocrit 44.3 35.0 - 48.0 % 11/05/2021 10:32 AM [facility] ([facility]) Platelet Count 203 141 - 380 K/uL 11/05/2021 10:32 AM [facility] ([facility]) MCV 94.1 83.1 - 97.1 fl 11/05/2021 10:32 AM [facility] ([facility]) MCH 31.0 28.6 - 32.6 pg 11/05/2021 10:32 AM [facility] ([facility]) MCHC 33.0 32.0 - 36.0 g/dL 11/05/2021 10:32 AM [facility] ([facility]) RDW 12.6 11.6 - 15.6 % 11/05/2021 10:32 AM [facility] ([facility]) Neutrophils % 60.5 50.0 - 70.0 % 11/05/2021 10:32 AM [facility] ([facility]) Lymphocytes % 30.0 18.0 - 38.0 % 11/05/2021 10:32 AM [facility] ([facility] CL) Monocytes % 7.9 4.0 - 12.0 % 11/05/2021 10:32 AM [facility] ([facility]) Eosinophils % 1.1 1.1 - 6.1 % 11/05/2021 10:32 AM [facility]) Basophils % 0.5 0.0 - 1.7 % 11/05/2021 10:32 AM [facility] ([facility]) Neutrophils Absolute 3.4 3.3 - 5.7 x10(9)/L 11/05/2021 10:32 AM [facility] ([facility]) Immature Granulocytes % 0.00 0.00 - 0.43 % 11/05/2021 10:32 AM [facility] ([facility]) Blood BLOOD SPECIMEN / Unknown Lab Venipuncture / Unknown 11/05/2021 10:23 AM CDT 11/05/2021 10:23 AM CDT Prosper Fam MD LAB - HEMATOLOGY ORD ERABLES [facility] [address] [place] [address] * (ABNORMAL) BASIC METABOLIC PANEL (CALCIUM TOTAL) (11/05/2021 10:23 AM CDT) Glucose 113(H) 70 - 100 mg/dL 11/05/2021 10:53 AM CDT [facility] BUN 21(H) 7 - 17 mg/dL 11/05/2021 10:53 AM CDT [facility] Creatinine 0.70 0.52 - 1.04 mg/dL 11/05/2021 10:53 AM CDT [facility] Sodium 143 137 - 145 mmol/L 11/05/2021 10:53 AM CDT [facility] Potassium 4.2 3.5 - 5.1 mmol/L 11/05/2021 10:53 AM CDT [facility] Chloride 108(H) 98 - 107 mmol/L 11/05/2021 10:53 AM CDT [facility] CO2 29 22 - 30 mmol/L 11/05/2021 10:53 AM CDT [facility] Calcium 9.1 8.4 - 10.2 mg/dL 11/05/2021 10:53 AM CDT [facility]) eGFR >60 >60 mL/min/1.73 m2 11/05/2021 10:53 AM CDT [facility] Blood BLOOD SPECIMEN / Unknown Lab Venipuncture / Unknown 11/05/2021 10:23 AM CDT 11/05/2021 10:23 AM CDT Narrative [facility] - 11/05/2021 10:53 AM CDT It is recommended that for: GFR values greater than 60 mL/min/1.73 sq.meters - no additional renal evaluation is required. GFR values less than 60 mL/min/1.73 sq.meters - complete evaluation for renal disease. GFR values less than 30 mL/min/1.73 sq.meters - consultation with a Electric Fan Assembler. Prosper Fam MD LAB - CHEMISTRY YG BRAVO [facility] [address] [place] [address] Care Teams Advertising Photographer Relationship Specialty Start Date End Date Beth Cordero MD [address] [place] [address] PCP - General Family Medicine 10/17/18
--- OUTSIDE RECORDS SUMMARY | 2024-07-27 14:54 | XMS_ITS | Clinical Summary ---
Author Organization [facility] Address [address] [place] [address] Care Team Providers Care Erecting Engineer Name Role Phone Beth Cordero MD Primary [...] on file Legal Sex Female 1:55 AM PRODUCT SALES REPRESENTATIVE Gender Identity Not on file Sexual Orientation [...] file Insurance [facility] Care Teams Erecting Engineer Relationship Specialty Start Date End Date Beth Cordero MD [address] [place] [address] PCP - General 07/08/16
--- OUTSIDE RECORDS SUMMARY | 2024-07-27 14:54 | XMS_ITS | Encounter Summary ---
Author Organization [facility] Address [address] [place] [address] [place] [address] Phone Care Team Providers Care Nuclear Monitoring Technician Name Role Phone Beth Cordero MD Primary Care Provider +1- [phone] Reason for Visit * Reason Comments Medication Refill Encounter Details Date Type Department Care Team (Late st Contact Info) Description 03/22/2022 Refill [place] [id number] [facility] [place] [address] Candice Farris, PAC [address] [place] [address] Medication Refill Social History Tobacco [...] on filedocumented in this encounter Care Teams Nuclear Monitoring Technician Relationship Specialty Start Date End Date Beth Cordero MD [address] [place] [address] PCP - General Family Medicine 01/14/22 documented as of this encounter
--- OUTSIDE RECORDS SUMMARY | 2024-07-27 14:54 | XMS_ITS | Clinical Summary ---
Author Organization [facility] Address [address] [facility] [place] [address] Care Team Providers Care Cut Off Sawyer Log Name Role Phone Beth Cordero MD Primary Care Provider + Source Comments [facility],non-owned Affiliates and Associated Physician Practices is amultiple site organization consisting of ambulatory clinics and hospital sitesin [place], [place], [place] and [place]. This disclosure is being madepursuant to the Care Everywhere program and may not contain all information available regarding this patient. Last updated 18.[facility] Allergies No known active allergies Medications Be [...] age to complete this topic Care Teams Cut Off Sawyer Log Relationship Specialty Start Date End Date Beth Cordero MD [address] [place] [address] PCP - General Family Medicine 10/17/18
== END 2024-07-27 13:36 | disposition home or self-care (01) ==
LOC: ANHIMG 13:37
PROVIDERS: PCP Family Medicine; Visit Provider Nurse Practitioner
DX: K80.20 Calculus of gallbladder without cholecystitis without obstruction (principal); R91.1 Solitary pulmonary nodule; R15.1 Fecal smearing; R19.5 Other fecal abnormalities; R10.32 Left lower quadrant pain
CPT/HCPCS: 74177; Q9967

== ENCOUNTER 2024-08-24 10:15 | Outpatient (RCR) | payer MEDICARE, SELFPAY ==
--- NOTE | 2024-08-01 12:35 | OPREHPOC ---
Outpatient Therapy Plan of Care This is a Multidisciplinary Plan of Care that may contain components documented by all disciplines (PT, OT, and ST.) PT Problem 1 PT Problem #1 Knowledge Deficit PT Goal 1 Goal / Goal Update [place] with HEP Target Visit 4 PT Goal 2 Goal / Goal Update Patient will report no pain greater than 2/10 for 2 consecutive weeks Target Visit 8 PT Problem 2 PT Problem #2 Impaired Range of Motion PT Goal 1 Goal / Goal Update 1. Improve ricarda cervical rotation to 60 degrees 2. Demonstrate pain free end range flexion and extension Target Visit 8 PT Problem 3 PT Problem #3 Impaired Functional Mobility PT Goal 1 Goal / Goal Update 1. Improve neck index score by 20% 2. Report 50% improvement in quality of sleep Target Visit 8
--- NOTE | 2024-08-01 12:37 | PTOPEVAL1 ---
Assessment and note entered by Sourav Taylor, PT Evaluation Information Assessment Status Evaluation ICD-10 Condition Codes (PT) Cervicalgia M54.2 Onset June 2024 Subjective Information Reports that she has had neck issues for a while. She has no mechanism of injury but a couple of weeks ago she noted significant increase in stiffness and tightness. She had a x-ray which indicated likely arthritis. She has been using Voltaren for pain. Tylenol has not helped with pain. She has switched to Ibuprophen which has seemed to do a little better. Reports that she is not sleeping well. 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 Right side of neck feels worse than her left. Reported Pain Level Pain Score 8: Self Report Assessment PT Clinical Summary Patient presents with signs and symptoms of cervical stenosis with resultant upper trapezius spasm and injury. Patient has point tenderness to trigger points of postural muscles of neck. Patient will benefit from skilled therapy to address these deficits for improved cervical mobility and postural strengthening. Plan of Care Interventions Manual Therapy,Neuro Re-education,Therapeutic Activities,Therapeutic Exercise PT Services Indicated Yes Treatment Frequency and 2x/week for 8 visits Duration These treatments will address the objective and functional deficits as defined above. The patient will be advanced safely and appropriately in order for the patient to progress towards his/her prior level of function. Additional exercises will be introduced and as well as a comprehensive home exercise program upon discharge, if needed, ?to ensure carryover of functional gains achieved in the clinic. This treatment plan has been reviewed and agreement upon by the patient.
--- NOTE | 2024-08-11 09:04 | PCPTNOTE ---
Patient canceled appointment this date but did not leave a reason.
--- NOTE | 2024-08-15 09:12 | PCPTNOTE ---
Patient canceled her appointment this date due to not feeling well and having issues with blood pressure.
--- NOTE | 2024-08-24 10:56 | OPREHPOC ---
Outpatient Therapy Plan of Care This is a Multidisciplinary Plan of Care that may contain components documented by all disciplines (PT, OT, and ST.) PT Problem 1 PT Problem #1 Knowledge Deficit PT Goal 1 Goal / Goal Update [place] with HEP Target Visit 4 Progress Met PT Goal 2 Goal / Goal Update Patient will report no pain greater than 2/10 for 2 consecutive weeks 08/24/24: 1. progressing, 3/10 Target Visit 8 PT Problem 2 PT Problem #2 Impaired Range of Motion PT Goal 1 Goal / Goal Update 1. Improve ricarda cervical rotation to 60 degrees 2. Demonstrate pain free end range flexion and extension 08/24/24: 1. progressing 2. met Target Visit 8 PT Problem 3 PT Problem #3 Impaired Functional Mobility PT Goal 1 Goal / Goal Update 1. Improve neck index score by 20% 2. Report 50% improvement in quality of sleep 08/24/24: 1. progressing, 6% improvement 2. met, reports 80% Target Visit 8
--- NOTE | 2024-08-24 10:56 | PTOPDC ---
Assessment and note entered by Sophie Martinez, PT, DPT Evaluation Information Assessment Status Discharge ICD-10 Condition Codes (PT) Cervicalgia M54.2 Onset June 2024 Subjective Information Pt states she is doing better, her pain is still rough in the morning. She also states she is limited with how long she can sew/craft a once, also when working at a desk her pain increases. She states overall pain has decreased, she knows how to modify her pain. Reports 80% improvement in overall symptoms. Reported Pain Level Pain Score 0: Self Report Assessment PT Clinical Summary Patient presents to therapy for her progress report following 6 visits of skilled therapy to treat her cervical stenosis. Today she demonstrates improved cervical ROM, improved shoulder strength, and reports decreased cervical pain. She demonstrates improved posture with cueing. Her HEP was progressed. Pt has met or progressed towards all of her therapy goals and no longer requires skilled services, she will be discharged at this time. Plan of Care PT Services Indicated No
== END 2024-10-30 23:59 | disposition home or self-care (01) ==
LOC: ANHGOSHPT 10:15
PROVIDERS: PCP Family Medicine; Visit Provider Family Medicine
DX: M54.2 Cervicalgia (principal)
CPT/HCPCS: 97110; 97140; 97161

== ENCOUNTER 2024-10-04 09:45 | Outpatient (RCR) | payer MEDICARE, SELFPAY ==
--- NOTE | 2024-09-15 09:43 | OPREHPOC ---
Outpatient Therapy Plan of Care This is a Multidisciplinary Plan of Care that may contain components documented by all disciplines (PT, OT, and ST.) PT Problem 1 PT Problem #1 Knowledge Deficit PT Goal 1 Goal / Goal Update 1. Patient will perform independent HEP Target Visit 2 PT Problem 2 PT Problem #2 Impaired Strength PT Goal 1 Goal / Goal Update 1. Improve pelvic floor endurance to 10 seconds to reduce incontinence 2. Improve pelvic floor strength to 4/5 to reduce incontinence 3. Improve bilateral hip abduction to 4+/5 Target Visit 4 PT Problem 3 PT Problem #3 Impaired Functional ADLs PT Goal 1 Goal / Goal Update 1. Patient will report fecal incontinence no more than 1 time every 2 weeks 2. Patient will not be limited in attending uatsdin due to incontinence Target Visit 4
--- NOTE | 2024-09-15 09:43 | PTOPEVAL1 ---
Assessment and note entered by Vee Melendrez DPT Evaluation Information Assessment Status Evaluation Diagnosis k62.3, r15.1, m62.89 ICD-10 Condition Codes (PT) Weakness R53.1,Urge incontinence N39.41 Subjective Information Pt reports fecal incontinence/smearing. Was previously seen in therapy for a few visits and thinks it helped some. Taking fiber every other night. Is now having a BM every single day. Gets smearing almost every single day. Sometimes will wear pads like if she is going out in the community and has to change underwear at times. Reports a fear of going to judaism or shopping because she is worried about getting incontinence there. Voids less than 10 times a day. Small volume of urge incontinence on occasion, less than 1 time a week. No pain with urination. Can hold urge to void up to 15 minutes. Diet: water, tea, vitamin water, Sugar free Sunkist, cup of decaf coffee in the morning. Does not eat 3 meals a day, will eat a small breakfast, lunch is variable and if she eats lunch late she will not really eat dinner and will only snack Patient goal: not be embarrassed, not have fecal incontinence Return to MD is not scheduled. Reported Pain Level Pain Score 0: Self Report Assessment PT Clinical Summary The patient is presenting to skilled therapy with a history of fecal incontinence, intermittent urge incontinence, and diagnosis of rectal prolapse. She presents with decreased hip and core strength as well as decreased pelvic floor strength and endurance. These impairments are contributing to her daily fecal incontinence. She will highly benefit from therapy to address impairments to reduce incontinence and restore function and ability to go out in the community. Plan of Care Interventions Manual Therapy,Neuro Re-education,Patient/ Caregiver Education,Therapeutic Activities, Therapeutic Exercise PT Services Indicated Yes Treatment Frequency and 1 time a week for 4 visits Duration These treatments will address the objective and functional deficits as defined above. The patient will be advanced safely and appropriately in order for the patient to progress towards his/her prior level of function. Additional exercises will be introduced and as well as a comprehensive home exercise program upon discharge, if needed, ?to ensure carryover of functional gains achieved in the clinic. This treatment plan has been reviewed and agreement upon by the patient.
--- NOTE | 2024-10-04 10:18 | OPREHPOC ---
Outpatient Therapy Plan of Care This is a Multidisciplinary Plan of Care that may contain components documented by all disciplines (PT, OT, and ST.) PT Problem 1 PT Problem #1 Knowledge Deficit PT Goal 1 Goal / Goal Update 1. Patient will perform independent HEP Target Visit 2 Progress Met PT Problem 2 PT Problem #2 Impaired Strength PT Goal 1 Goal / Goal Update 1. Improve pelvic floor endurance to 10 seconds to reduce incontinence 2. Improve pelvic floor strength to 4/5 to reduce incontinence 3. Improve bilateral hip abduction to 4+/5 update 10/04/24 1. not assessed 2. not assessed 3. improved, R 4/5 Target Visit 5 PT Problem 3 PT Problem #3 Impaired Functional ADLs PT Goal 1 Goal / Goal Update 1. Patient will report fecal incontinence no more than 1 time every 2 weeks 2. Patient will not be limited in attending voodoo due to incontinence update 10/04/24 1. no change 2. no change Target Visit 5 Progress Not Met
--- NOTE | 2024-10-04 10:18 | PTOPPROG ---
Assessment and note entered by Vee Melendrez DPT Evaluation Information Assessment Status Progress Diagnosis k62.3, r15.1, m62.89 ICD-10 Condition Codes (PT) Weakness R53.1,Urge incontinence N39.41 Subjective Information Pt goes for colonoscopy this week and has appt next Wednesday. Patient is unsure if she has improved with therapy, 2 weeks ago had significant diarrhea/incontinence for multiple days and reports her stomach just doesn't feel the same. Assessment PT Clinical Summary The patient has made limited progress in therapy at this time. She does demonstrate improved hip and abdominal strength (pelvic not assessed per request). She reports 2 weeks ago having a significant amount of diarrhea and fecal incontinence for multiple days. Due to this, plan to hold therapy for several weeks for patient to follow up with provider to discuss potential other medical issues contributing to diarrhea, and will continue therapy as needed after her appointment. Plan of Care Interventions Manual Therapy,Neuro Re-education,Patient/ Caregiver Education,Therapeutic Activities, Therapeutic Exercise PT Services Indicated Yes Treatment Frequency and hold therapy pending follow up with referring Duration provider, may schedule 1 visit in 3-4 weeks as needed These treatments will address the objective and functional deficits as defined above. The patient will be advanced safely and appropriately in order for the patient to progress towards his/her prior level of function. Additional exercises will be introduced and as well as a comprehensive home exercise program upon discharge, if needed, ?to ensure carryover of functional gains achieved in the clinic. This treatment plan has been reviewed and agreement upon by the patient.
--- NOTE | 2024-11-14 09:18 | PTOPDC ---
Assessment and note entered by Vee Melendrez DPT Evaluation Information Assessment Status Discharge - Pt Not Present Diagnosis k62.3, r15.1, m62.89 ICD-10 Condition Codes (PT) Weakness R53.1,Urge incontinence N39.41 Subjective Information - Assessment PT Clinical Summary No therapy visits scheduled since 10/04/24- patient case to be discharged this date. Plan of Care PT Services Indicated No
== END 2024-11-14 10:36 | disposition home or self-care (01) ==
LOC: ANHPT 09:45
PROVIDERS: PCP Family Medicine; Visit Provider Nurse Practitioner
DX: K62.3 Rectal prolapse (principal); R15.1 Fecal smearing; M62.89 Other specified disorders of muscle
CPT/HCPCS: 97112; 97161; 97530

== ENCOUNTER 2024-10-06 00:14 | Day surgery (SDC) | payer MEDICARE, SELFPAY ==
[2024-09-27 14:55] VITALS: BMI 31.1
--- OUTSIDE RECORDS SUMMARY | 2024-10-06 00:17 | XMS_ITS | Encounter Summary ---
Author Organization [facility] Address [address] [place] [address] [place] [address] Phone Care Team Providers Care Broom Bundler Name Role Phone Beth Cordero MD Primary Care Provider [phone] Reason for Visit * Reason Comments Medication Refill Encounter Details Date Type Department Care Team (Late st Contact Info) Description 06/23/2022 Refill [facility] [address] [place] [address] [place] [address] [place] [address] Medication Refill Social History Tobacco [...] on filedocumented in this encounter Care Teams Broom Bundler Relationship Specialty Start Date End Date Beth Cordero MD [address] [place], [place] [id number] PCP - General Family Medicine 01/14/22 documented as of this encounter
--- OUTSIDE RECORDS SUMMARY | 2024-10-06 00:17 | XMS_ITS | Encounter Summary ---
Author Organization [facility] Address [address] [place] [address] [place] [address] Phone Care Team Providers Care Graphic Coordinator Name Role Phone Beth Cordero MD Primary Care Provider [phone]- [phone] Reason for Visit * Reason Comments Medication Refill Encounter Details Date Type Department Care Team (Late st Contact Info) Description 03/22/2022 Refill [place] [id number] [place] [address] [place] [address] [place] [address] Medication Refill Social History Tobacco [...] on filedocumented in this encounter Care Teams Graphic Coordinator Relationship Specialty Start Date End Date Beth Cordero MD [address] [address] PCP - General Family Medicine 01/14/22 documented as of this encounter
--- OUTSIDE RECORDS SUMMARY | 2024-10-06 00:17 | XMS_ITS | Encounter Summary ---
Author Organization [facility] Address [address] [place] [address] Phone Care Team Providers Care Homeland Security Program Specialist Name Role Phone Beth Cordero MD Primary Care Provider [phone] Reason for Visit * Reason Comments Medication Refill Encounter Details Date Type Department Care Team (Late st Contact Info) Description 05/04/2022 Refill [facility] [address] [place] [address] [place] [address] [place] [address] Medication Refill Social History Tobacco [...] Coronavirus/COVID-19? 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
--- OUTSIDE RECORDS SUMMARY | 2024-10-06 00:17 | XMS_ITS | Continuity of Care Document ---
Author Organization [facility] Address [address] [place] [address] [address] [place] [address] Phone Care Team Providers Care Emery Wheel Molder Name Role Phone El OD, Juvencio Unavailable Unavailable Procedures Procedure Date Eye Exam & Treatment Refraction Advance Directives Directive Yes / No Effective Date File Name No Information Encounters Encounter Description Practice Location Reason(s) For Visit Diagnoses Date Provider Providers Copied on Encounter [facility], [address] [place] [address] [address], [place], [place], [id number], [place] tel:[phone] [facility] No Information September-0 8-200 8 El OD Juvencio. [address] , [address], [place], [address], [place]. tel:[phone] Family History Family Member Type Diagnosis Age At Onset No Information Payers Payer name Insurance type Covered libertarian ID Authoriza tion(s) No Information Social History Type Description Quantity Date Captured Comments Sex Female Smoking Status No Information Chief Complaint And Reason For Visit No Information Reason For Referral Reason For Referral No Information History Of Present Illness Encounter Date Complaint History Of Prese nt Illness No Information Functional Status Date Functional Assessmen t No Information Instructions Date Instruction Additional Infor mation No Information Assessments Type Assessment Date No Information Patient Care Teams Name Effective Dates (start - stop) Status Members No Information
--- OUTSIDE RECORDS SUMMARY | 2024-10-06 00:18 | XMS_ITS | Continuity of Care Document ---
Author Organization [facility] Address [address] [place] [address] [address] [place] [address] Phone Care Team Providers Care Service Line Layer Name Role Phone Balbir Pham MD, MD Unavailable Unavailable Medications Medication Instructions Dosage Effective Dates (start - stop) Status Comments ketorolac 0.4 % Eye Drops one drop in operative eye four times daily starting 3 days BEFORE surgery and continuing for 4 weeks AFTER surgery. - Active this is to replace the prolensa Procedures Procedure Date CATARACT SURG W/IOL, 1 STAGE CATARACT SURG W/IOL, 1 STAGE OFFICE/OUTPATIENT VISIT, NEW OPHTHALMIC BIOMETRY OPHTHALMIC BIOMETRY SPECIAL EYE EXAM, INITIAL SPECIAL EYE EXAM, INITIAL Advance Directives Directive Yes / No Effective Date File Name No Information Encounters Encounter Description Practice Location Reason(s) For Visit Diagnoses Date Provider Providers Copied on Encounter [facility], [address] [place] [address], [id number], tel:[phone] [address] [place] [address] No Information 3 Vero Mcgregor. [address], [address], [place], [place], [id number] , [place]. tel:[phone] Referring Provider: Balbir Marte, [address], [place], [address] . tel:[phone] [facility], [address] [place] [address] [address], [place], [place], [id number], tel:[phone] [address] [place] [address] No Information 3 Vero Mcgregor. [address], [address], [place], [place], [id number] , [place]. tel:[phone] Referring Provider: Balbir Pham MD P, [address], [place], [address] . tel:[phone] OFFICE/OUTPA TIENT VISIT, [facility], [address], [place], [place], [id number], tel:[phone] [facility] No Information 3 Vero Mcgregor. [address], [address], [place], [place], [id number] , [place]. tel:[phone] Referring Provider: Balbir Pham MD P, [address], [place], [address] . tel:[phone] Family History Family Member Type Diagnosis Age At Onset No Information Payers Payer name Insurance type Covered green party ID Authoriza tilacie(s) No Information Social History Type Description Quantity [...]
--- OUTSIDE RECORDS SUMMARY | 2024-10-06 00:18 | XMS_ITS | Clinical Summary ---
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
--- OUTSIDE RECORDS SUMMARY | 2024-10-06 00:18 | XMS_ITS | Clinical Summary ---
Author Organization [address] Address [address] [place] [address] Phone Care Team Providers Care Precision Machine Operator Name Role Phone Beth Cordero MD Primary Care Provider [phone] Allergies Active Allergy Reactions Criticality Noted Date [...] this topic Medical Devices Implanted Type Area Angiographer Device Identifier Shelf Expiration Date Model / Serial / Lot Att Ps Fem Rt Sz 4 Por [id number] - [id number] Implanted:Qty : 1 on 02/10/2022 by Prosper Sanchez MD at [facility] IMPLANT Right: Knee [employer] 08/21/2030 [id number] / [id number] / [id number] Att Rp Tibial Base Sz 4 Por [id number] - [id number] Implanted:Qty : 1 on 02/10/2022 by Prosper Sanchez MD at [facility] IMPLANT Right: Knee [employer] 11/20/2030 [id number] / [id number] / [id number] Att Tib Ins Rt Plt P/S 4 6mm [id number] - [id number] Implanted:Qty : 1 on 02/10/2022 by Prosper Sanchez MD at [facility] IMPLANT Right: Knee [employer] 12/21/2026 [id number] / [id number] / [id number] Insurance MEDICARE C [employer] Care Teams Precision Machine Operator Relationship Specialty Start Date End Date Rostovtseva, Beth, MD [address] [facility] [address] [address] [address] [address] [facility] [address] [place] [address] PCP - General Family Medicine 01/14/22
--- OUTSIDE RECORDS SUMMARY | 2024-10-06 00:18 | XMS_ITS | Continuity of Care Document ---
Author Organization [employer] [place] Address [address] [place] [address] [address] [place] [address] Phone Care Team Providers Care Fitness And Wellness Instructor Name Role Phone Bakari PT,MPT,ATC, David Unavailable Unavai lable Procedures Procedure Date Therapeutic Activities Neuromuscular Re-Ed Therapeutic Exercise Therapeutic Activities Neuromuscular Re-Ed Therapeutic Activities Neuromuscular Re-Ed Therapeutic Exercise Therapeutic Activities Neuromuscular Re-Ed Therapeutic Exercise Hot or Cold Pack Therapeutic Activities Neuromuscular Re-Ed Therapeutic Exercise Therapeutic Activities Hot or Cold Pack Neuromuscular Re-Ed Therapeutic Activities Neuromuscular Re-Ed Manual Therapy Hot or Cold Pack Therapeutic Activities Neuromuscular Re-Ed Progress Note Therapeutic Activities Neuromuscular Re-Ed Therapeutic Activities Neuromuscular Re-Ed Therapeutic Activities Neuromuscular Re-Ed Therapeutic Activities Neuromuscular Re-Ed Therapeutic Exercise Hot or Cold Pack Therapeutic Activities Neuromuscular Re-Ed Therapeutic Activities Neuromuscular Re-Ed Manual Therapy Therapeutic Activities Neuromuscular Re-Ed Manual Therapy Hot or Cold Pack Therapeutic Activities Neuromuscular Re-Ed Manual Therapy Therapeutic Activities Neuromuscular Re-Ed Manual Therapy Therapeutic Activities Neuromuscular Re-Ed Manual Therapy Therapeutic Activities Manual Therapy Therapeutic Activities Neuromuscular Re-Ed Therapeutic Activities Neuromuscular Re-Ed Therapeutic Exercise Manual Therapy Doc neg elder mal no plan PT Evaluation Moderate Complexity Therapeutic Activities Neuromuscular Re-Ed Therapeutic Exercise Advance Directives Directive Yes / No Effective Date File Name No Information Encounters Encounter Description Practice Location Reason(s) For Visit Diagnoses Date Provider Providers Copied on Encounter [facility] [employer] [address] [place] [address], [id number], tel:[phone] [facility] No Information 3 Bakari [place], [place]. [facility] [employer] [address], [place], [id number], tel:[phone] [facility] No Information b 3 Bakari Gonzalez [place], [place]. Referring Provider: Beth Cordero , [address] [facility], [place], [address]. tel:[phone] [facility] [employer] [address], [place], [id number], tel:[phone] [facility] No Information 3 [place], [place], [place]. Referring Provider: Beth Cordero , [address] [facility] [address] , [place], [address]. tel:[phone] [place], [place] [address] [facility], [place], [place], [id number], tel:[phone] [facility] No Information 3 [place], [place], [place]. Referring Provider: Beth Cordero , [address] [facility] [address] , [place], [address]. tel:[phone] [place] [address] [address] [facility], [place], [place], [id number], [place] tel:[phone] [facility] No Information 3 Quinn Joe. . Referring Provider: Beth Cordero , [address] [facility] [address] , [place], [address]. tel:[phone] [place], [place] [address] [facility], [place], [place], [id number], [place] tel:[phone] [facility] No Information 3 Elisa Michaud. . Referring Provider: Beth Cordero , [address] [facility], [place], [address]. tel:[phone] [place] [address] [facility], [place], [place], [id number], [place] tel:[phone] [facility] No Information 3 [place], [place], [place]. Referring Provider: Beth Cordero , [address] [facility] [facility] , [place], [address]. tel:[phone] [facility] [facility] [address], [place], [place], [id number], [place] tel:[phone] [facility] No Information 3 Quinn Joe. . Referring Provider: Beth Cordero , [address] [facility] , [place], [address]. tel:[phone] [facility], [place], [place], [id number], [place] tel:[phone] [facility] No Information 3 Quinn Joe. . Referring Provider: Beth Cordero , [address] [facility] , [place], [address]. tel:[phone] [facility], [place], [place], [id number], [place] tel:[phone] [facility] No Information 3 Klprettyn Jaswant. . Referring Provider: Beth Cordero , [address] [facility] [address] , [place], [address]. tel:[phone] [facility], [place], [place], [id number], [place] tel:[phone] [facility] No Information 3 Averyn Jaswant. . Referring Provider: Beth Cordero , [address] [facility] [address] , [place], [address]. tel:[phone] [facility], [place], [place], [id number], [place] tel:[phone] [facility] No Information 2 Elisa Michaud. . Referring Provider: Beth Cordero , [address] , [place], [address]. tel:[phone] [place], [place] [address] [address], [place], [place], [id number], [place] tel:[phone] [facility] No Information 2 Quinn Joe. . Referring Provider: Beth Cordero , [address] , [place], [address]. tel:[phone] [facility], [place], [place], [id number], [place] tel:[phone] [facility] No Information Dec-2 2-202 2 Quinn Heath. . Referring Provider: Beth Cordero , [address] [facility], [place], [address]. tel:[phone] [place] [address], [address] [address], [place], [place], [id number], tel:[phone] [facility] No Information Dec-2 0-202 2 Quinn Heath. . Referring Provider: Beth Cordero , [address] [facility], [place], [address]. tel:[phone] [place] [address] [place] [address], [place], [place], [id number], [place] tel:[phone] [facility] No Information Dec-1 5-202 2 Quinn Heath. . Referring Provider: Beth Cordero , [address] [facility], [place], [address]. tel:[phone] [place] [address] [address] [address], [place], [place], [id number], [place] tel:[phone] [facility] No Information Dec-1 3-202 2 Klahn Jaswant. . Referring Provider: Beth Cordero , [address] [facility], [place], [address]. tel:[phone] [place] [address] [place] [address], [id number], [place] tel:[phone] [facility] No Information Dec-0 8-202 2 Modglin Leo. . Referring Provider: Beth Cordero , [address] [facility], [place], [address]. tel:[phone] [place] [address] [address] [address], [place], [place], [id number], [place] tel:[phone] [facility] No Information Dec-0 6-202 2 Klahn Jaswant. . Referring Provider: Beth Cordero , [address] [facility], [place], [address]. tel:[phone] [facility] [address], [id number], tel:[phone] [facility] No Information 2 Elisa Michaud. . Referring Provider: Beth Cordero , [address] [facility], [place], [address]. tel:[phone] [facility] [address], [id number], tel:[phone] [facility] No Information 2 Averymelisa Michaud. . Referring Provider: Beth Cordero , [address] [facility], [place], [address]. tel:[phone] [facility] [address] [place] [address], [id number], tel:[phone] [facility] No Information 2 Averymelisa Michaud. . Referring Provider: Beth Cordero , [address] [facility], [place], [address]. tel:[phone] [facility] [address], [id number], tel:[phone] [facility] No Information 2 Renée Mir. [address] [place] [address], [address], [place], [facility], . tel: [phone] Referring Provider: Beth Cordero , [address] [facility], [place], [address]. tel:[phone] Family History Family Member Type Diagnosis Age At Onset No Information Payers Payer name Insurance type Covered green party ID Deandrerosalva wyattlacie(s) [employer] CI [id number] Social History Type Description Quantity Date Captured Comments Sex Female Smoking Status No Information Chief Complaint And Reason For Visit No Information Reason For Referral Reason For Referral No Information History Of Present Illness Encounter Date Complaint History Of Prese nt Illness No Information Functional Status Date Functional Assessmen t No Information Instructions Date Instruction Additional Infor ishaan Giving encouragement to exercise Related to Overweight Giving encouragement to exercise Related to Overweight Assessments Type Assessment Date No Information Patient Care Teams Name Effective Dates (start - stop) Status Members No Information
--- OUTSIDE RECORDS SUMMARY | 2024-10-06 00:18 | XMS_ITS | Referral Summary ---
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
--- OUTSIDE RECORDS SUMMARY | 2024-10-06 00:18 | XMS_ITS | Clinical Summary ---
Author Organization [facility] [email or web address] Address [address] [facility] [place] [address] Care Team Providers Care Money Counter Name Role Phone Beth Cordero MD Primary Care Provider + Source Comments [facility] [email or web address],non-owned Affiliates and Associated Physician Practices is amultiple site organization consisting of ambulatory clinics and hospital sitesin [place], [place], [place] and [place]. This disclosure is being madepursuant to the Care Everywhere program and may not contain all information available regarding this patient. Last updated 18.[facility] [email or web address] Allergies No known active allergies Medications * Be aware that medications may not be up to date on this document. Alwaysverify current medications with the patient. No known medications Family History Medical History Relation Name Comments Cancer - Skin, Melanoma Brother Depression Brother Hypertension Brother Diabetes - Type 2 Mother Hypertension Mother Diabetes - Type 2 Sister Hypertension Sister Relation Name Status Comments Brother Mother Sister Social History Tobacco Use Types Packs/Day Years Used Date Smoking Tobacco: Never Smokeless Tobacco: Never Comments Unknown Sex and Gender Information Value Date Recorded Sex Assigned at Not on file Legal Sex Female 9:03 AM CDT Gender Identity Not on file [...] VACCINE ( - 2023-2 5 season) 2024 DEPRESSION SCREENING 05/24/2024 INFLUENZA VACCINE (Season Ended) 2025 HEPATITIS B VACCINE Aged Out No longe r eligible based on patient's age to complete this topic HIB VACCINE Aged Out No longer eligi ble based on patient's age to complete this topic HPV VACCINE Aged Out No longer eligi ble based on patient's age to complete this topic MENINGOCOCCAL (Group B) VACC INE SHARED DECISION-MAKING Aged Out No longer eligibl e based on patient's age to complete this topic MENINGOCOCCAL GROUPS A/C/Y/W VACCINE Aged Out No longer eligible b ased on patient's age to complete this topic Insurance MEDICARE [facility] MEDICARE MEDICARE MEDICARE [facility] VILMA RAMIREZ [id number] Care Teams Money Counter Relationship Specialty Start Date End Date Beth Cordero MD [address] [place] [address] PCP - General Family Medicine 10/17/18
[2024-10-06 07:49] VITALS: BP 172/94; PULSE 72; RESP 16; TEMP 36.6; O2SAT 95
[2024-10-06 07:50] VITALS: BMI 30.6
--- NOTE | 2024-10-06 09:00 | WPDANESEPPF ---
Anes - Initial Pre Proc Eval Procedure: Operation Date: 10/06/24 09:00 Proposed Procedures p Colonoscopy - Pal Silva MD Date/Time: 10/06/24 09:00 Surgeon: Pal Silva MD Pre Op Diagnosis: Full incontinence feces,abdominal pain, Fecal smea Patient Data Age: 79 Gender: F Height: 1.55 m Weight: 73.5 kg Last Vital Signs Temp 36.6 C 10/06/24 07:49 Pulse 72 10/06/24 07:49 Resp 16 10/06/24 07:49 BP 172/94 H 10/06/24 07:49 Pulse Ox 95 10/06/24 07:49 O2 Del Method Room Air 10/06/24 07:49 Allergies Allergy/AdvReac Type Severity Reaction Status Date / Time cyclobenzaprine Allergy Intermediate Nausea and Verified 10/06/24 07:48 Vomiting morphine Allergy Intermediate nausea and Verified 10/06/24 07:48 vomiting codeine Allergy Mild Nausea and Verified 10/06/24 07:48 Vomiting gabapentin AdvReac Severe Confusion Verified 10/06/24 07:48 pneumococcal vaccine AdvReac Intermediate Rash Verified 10/06/24 07:48 Home Medications Medication Instructions Recorded Confirmed Type losartan 25 mg tablet See Rx Instructions .Route 08/18/24 10/06/24 Rx .COMPLEX #90 tabs alendronate 70 mg tablet See Rx Instructions .Route 09/18/24 09/27/24 Rx .COMPLEX #12 tabs Patient hx anesthesia problems: none Family hx anesthesia problems: none Results Review: All pre-operative results and documents have been reviewed as part of the pre-operative evaluation. [facility] Past Medical History Medical History Hives Painful total knee replacement, right Hx of melanoma of skin FHx: diabetes mellitus Postmenopausal Lipid screening Transient insomnia Subacute maxillary sinusitis Psychophysiological insomnia Postoperative nausea and vomiting Pneumonia, unspecified organism Osteopenia of multiple sites Motion sickness, initial encounter Lipoma of right upper extremity IFG (impaired fasting glucose) History of melanoma Elevated blood pressure reading with diagnosis of hypertension Cough Compression fracture Adverse effect of other opioids, subsequent encounter Adverse effect of other opioids, initial encounter Acute bronchitis History of COVID-19 Lumbar vertebral fracture Blepharophimosis Droopy eyelid Osteopenia Compression fracture of L1 lumbar vertebra Malignant melanoma of neck Surgical History Surgical History S/P excision of lipoma H/O melanoma excision Family History Family History Mother Hypertension Asthma Family history of diabetes mellitus in first degree relative Family history of heart disease in male family member before age 55 Sibling Hypertension Family history of diabetes mellitus in first degree relative Depression Other Diabetes mellitus Social History Social History Social History: Smoking status: Never smoker Second hand tobacco smoke exposure: No Alcohol intake: never Substance use: never Substance use type: does not use Do You Feel Safe in your Home?: Yes Lack of Transportation: No Lack of Food: Never True Current Housing: I Have Housing Concerned About Future Housing: No Difficulty Paying Gas/Electric Bills: No Difficulty Paying for Meds: No Currently Unemployed: No Education: High School Diploma/GED Difficulty w/ Childcare or Family Care: No Living arrangements: alone Occupation/Education: retired Gender identity (if verbalized by the patient): Female Sexual Orientation (if Verbalized by the Patient): Straight or Heterosexual Anes - Eval Final PreProcedure Day of Procedure 10/06/24 09:00 Patient weight: obese Heart: regular rate and rhythm Lungs: decreased breath sounds Airway: Mallampati scale class II Neurological: alert and oriented Last oral intake: >/= 8 hours ASA classification: III Emergent: no Anesthetic plan: proceed Anesthesia type and monitoring: general GIVS and standard monitoring Results Review: All pre-operative results and documents have been reviewed as part of the pre-operative evaluation. Informed Consent: The patient's anesthetic plan and its attendant risks and benefits were discussed with the patient/family/POA. Questions were solicited and answers provided to the satisfaction of the patient/family/POA.
[2024-10-06] MEDS: LACTATED RINGERS 1,000 ML 150 ML IV CONT (09:05)
--- NOTE | 2024-10-06 09:25 | PM.HPGS ---
History of Present Illness History of Present Illness Consent: Risks, benefits, and alternatives have been discussed and questions answered. Patient agrees to proceed with procedure. Chief complaint: Full incontinence feces,abdominal pain, Fecal smea Narrative: Daysi Walters is a 79 year old female here for colonoscopy, last one 2004, h/o anal leakage Review of Systems Review of Systems: All systems reviewed & are unremarkable except as noted in HPI and below PMFSH Past Medical History Medical History Hives Painful total knee replacement, right Hx of melanoma of skin FHx: diabetes mellitus Postmenopausal Lipid screening Transient insomnia Subacute maxillary sinusitis Psychophysiological insomnia Postoperative nausea and vomiting Pneumonia, unspecified organism Osteopenia of multiple sites Motion sickness, initial encounter Lipoma of right upper extremity IFG (impaired fasting glucose) History of melanoma Elevated blood pressure reading with diagnosis of hypertension Cough Compression fracture Adverse effect of other opioids, subsequent encounter Adverse effect of other opioids, initial encounter Acute bronchitis History of COVID-19 Lumbar vertebral fracture Blepharophimosis Droopy eyelid Osteopenia Compression fracture of L1 lumbar vertebra Malignant melanoma of neck Surgical History Surgical History S/P excision of lipoma H/O melanoma excision Family History Family History Mother Hypertension Asthma Family history of diabetes mellitus in first degree relative Family history of heart disease in male family member before age 55 Sibling Hypertension Family history of diabetes mellitus in first degree relative Depression Other Diabetes mellitus Social History Social History Social History: Smoking status: Never smoker Second hand tobacco smoke exposure: No Alcohol intake: never Substance use: never Substance use type: does not use Do You Feel Safe in your Home?: Yes Lack of Transportation: No Lack of Food: Never True Current Housing: I Have Housing Concerned About Future Housing: No Difficulty Paying Gas/Electric Bills: No Difficulty Paying for Meds: No Currently Unemployed: No Education: High School Diploma/GED Difficulty w/ Childcare or Family Care: No Living arrangements: alone Occupation/Education: retired Gender identity (if verbalized by the patient): Female Sexual Orientation (if Verbalized by the Patient): Straight or Heterosexual Meds Home Medications and Allergies Home Medications Medication Instructions Recorded Confirmed Type losartan 25 mg tablet See Rx Instructions .Route 08/18/24 10/06/24 Rx .COMPLEX #90 tabs alendronate 70 mg tablet See Rx Instructions .Route 09/18/24 09/27/24 Rx .COMPLEX #12 tabs Allergies Allergy/AdvReac Type Severity Reaction Status Date / Time cyclobenzaprine Allergy Intermediate Nausea and Verified 10/06/24 07:48 Vomiting morphine Allergy Intermediate nausea and Verified 10/06/24 07:48 vomiting codeine Allergy Mild Nausea and Verified 10/06/24 07:48 Vomiting gabapentin AdvReac Severe Confusion Verified 10/06/24 07:48 pneumococcal vaccine AdvReac Intermediate Rash Verified 10/06/24 07:48 Vital Signs Vital Signs - 24 hr 10/06/24 07:49 Temperature 97.8 F Pulse Rate 72 Respiratory Rate 16 Blood Pressure 172/94 H Pulse Oximetry 95 Oxygen Delivery Room Air Exam Const: General: comfortable and no acute distress HENMT: Face/Nose/Sinus: Normal nares present Eyes: General: appearance normal, both eyes and all related structures Neck: Neck: no JVD Resp: Auscultation: clear to auscultation bilaterally Cardio: Rate: regular rate Rhythm: regular rhythm GI: Inspection: non-distended GI Palp: Yes Soft to palpation Skin: General skin exam: normal color Neuro: Speech: normal speech Extrem: General: normal to inspection Psych: Mental Status: mental status grossly normal Assessment and Plan Assessment and plan (1) Incontinence of feces: Qualifiers: Fecal incontinence type: fecal smearing Qualified Code(s): R15.1 - Fecal smearing Code(s): R15.9 - Full incontinence of feces Status: Acute Assessment and Plan: colonoscopy (2) Fecal smearing: Code(s): R15.1 - Fecal smearing Status: Acute
[2024-10-06 09:42] VITALS: BP 119/52; PULSE 65; RESP 14; O2SAT 97
[2024-10-06 09:52] VITALS: BP 120/53; PULSE 60; RESP 14; O2SAT 96
[2024-10-06 10:02] VITALS: BP 125/83; PULSE 61; RESP 17; O2SAT 99
== END 2024-10-06 10:18 | disposition home or self-care (01) ==
PROVIDERS: PCP Family Medicine; Referring Provider Nurse Practitioner; Visit Provider Internal Medicine Gastroenterology
PROC: 0DJD8ZZ Inspection of Lower Intestinal Tract, Via Natural or Artificial Opening Endoscopic (ICD-10-PCS; CPT 45378; principal; 2024-10-06 09:00)
DX: D12.2 Benign neoplasm of ascending colon (principal); D12.3 Benign neoplasm of transverse colon; K64.4 Residual hemorrhoidal skin tags; K64.8 Other hemorrhoids; E11.9 Type 2 diabetes mellitus without complications; R03.0 Elevated blood-pressure reading, without diagnosis of hypertension; F51.02 Adjustment insomnia; F51.04 Psychophysiologic insomnia; M85.89 Other specified disorders of bone density and structure, multiple sites; E66.9 Obesity, unspecified; Z68.30 Body mass index [BMI] 30.0-30.9, adult; Z79.83 Long term (current) use of bisphosphonates; Z98.890 Other specified postprocedural states; Z96.651 Presence of right artificial knee joint; Z85.820 Personal history of malignant melanoma of skin; Z82.49 Family history of ischemic heart disease and other diseases of the circulatory system
CPT/HCPCS: 45380; 45385; 88305; J2704; J7120

== ENCOUNTER 2024-12-08 08:18 | Outpatient (CLI) | payer MEDICARE, SELFPAY ==
--- NOTE | ~2024-12-08 | DEXA_ITS ---
Bone Density Report Name: JOCELYN GRADY Age: 79 Sex: Female Ethnicity: White Date of : 1945 Indication: osteopenia; monitoring treatment; parental hip fracture; height loss; prior fracture; cancer; hysterectomy; Referring Provider: TINO MEJIA Study: Bone densitometry was performed. Exam Date: December 08, 2024 Accession number: [id number] Bone Density: Region BMD T-score Z-score Classification AP Spine(L1-L4) 1.147 0.9 3.5 Normal Femoral Neck (Left) 0.625 -2.0 0.2 Osteopenia Total Hip (Left) 0.862 -0.7 1.3 Normal Femoral Neck (Right) 0.622 -2.0 0.2 Osteopenia Total Hip (Right) 0.802 -1.1 0.8 Osteopenia Total Hip Mean 0.832 -0.9 1.1 Normal World Health Organization criteria for BMD impression classify patients as: Normal (T-score at or above -1.0), Osteopenia (T-score between -1.0 and -2.5), or Osteoporosis (T-score at or below -2.5). 10-year Fracture Risk: FRAX not reported because: Treated for osteoporosis Previous Exams: -- Region Exam Age BMD T-score BMD Change BMD Change Date g/cm2 vs Baseline vs Previous -- AP Spine (L1-L4) 12/08/2024 79 1.147 0.9 8.4%* 2.5%* 10/12/2020 75 1.119 0.7 5.7%* 5.7%* 03/16/2016 71 1.058 0.1 Total Hip(Left) 12/08/2024 79 0.862 -0.7 0.5% -1.5% 10/12/2020 75 0.875 -0.5 2.1% 2.1% 03/16/2016 71 0.857 -0.7 Total Hip(Right) 12/08/2024 79 0.802 -1.1 -0.3% -1.2% 10/12/2020 75 0.812 -1.1 0.9% 0.9% 03/16/2016 71 0.804 -1.1 -- *Denotes significance at 95% confidence level, LSC for AP Spine = 0.022 g/cm2, LSC for Total Hip = 0.027 g/cm2 Clinical Information Provided by Patient: Has had a low trauma fracture Parent has had a hip fracture Is being treated for osteoporosis Has used the following medications: Fosamax (i.e. alendronate) Has the following medical conditions: Cancer, Hysterectomy, Hx of melanoma on neck 32-33 years ago. Patient maximum height was 62.0 Menopause Age: 47 Drinks caffeinated beverages Onset of menses at age 12 Number of children 1 Impression: The patient has low bone mass, based on the Left Femoral Neck T-score. The patient has risk factors, including: parental hip fracture, previous fracture. No significant bone loss was observed. Discussion: PATIENT UNDER TREATMENT WITH NO SIGNIFICANT BMD LOSS SINCE LAST EXAM. In an untreated patient, BMD typically declines with age. A lack of decline or gain is usually a sign that treatment is efficacious and fracture risk is reduced. It is important to ask patients whether they are taking their medications and to encourage continued and appropriate compliance with their osteoporosis therapies to reduce fracture risk. It is also important to review their risk factors and encourage appropriate calcium and vitamin D intakes, exercise, fall prevention and other lifestyle measures. Follow-Up: Consider a repeat BMD and Vertebral Fracture Assessment (VFA) exam in 2 years or sooner if medically necessary, to reassess this patient's status. Reported by: ZEN on 12/08/2024 9:28:00 AM. Reviewed, dictated and finalized at location A.
== END 2024-12-08 08:19 | disposition home or self-care (01) ==
LOC: MICIMG 08:19
PROVIDERS: PCP Family Medicine; Visit Provider Physician Assistant
DX: M85.89 Other specified disorders of bone density and structure, multiple sites (principal); Z78.0 Asymptomatic menopausal state
CPT/HCPCS: 77080

== ENCOUNTER 2025-02-06 11:34 | Outpatient (CLI) | payer MEDICARE, SELFPAY ==
--- NOTE | ~2025-02-06 | MM_ITS ---
EXAMINATION: MM screening [facility] BI w justa HISTORY: Screening TECHNIQUE: Craniocaudal and mediolateral oblique 3-D tomosynthesis images were obtained and synthetic 2-D images were generated. CAD analysis was submitted and interpreted. COMPARISON: 01/15/2023 BREAST PARENCHYMAL COMPOSITION: Not Dense: The breasts are almost entirely fatty. FINDINGS: There is no evidence of suspicious mass, calcification, or architectural distortion to suggest malignancy. Focal asymmetry in the upper- outer quadrant of the right breast, anterior depth. Asymmetry in the medial left breast, posterior depth, seen in the left CC projection IMPRESSION: 1. Focal asymmetry in the upper-outer quadrant of the right breast, anterior depth. The study is incomplete. A diagnostic right breast mammogram and a diagnostic right breast ultrasound is recommended. 2. Asymmetry in the medial left breast, posterior depth, seen in the left CC projection. The study is incomplete. A diagnostic mammogram and a diagnostic ultrasound are recommended. BI-RADS 0: Incomplete-Need additional imaging evaluation. Reviewed, dictated and finalized at location Q. IMPRESSION: 1. Focal asymmetry in the upper-outer quadrant of the right breast, anterior de pth. The study is incomplete. A diagnostic right breast mammogram and a diagnos tic right breast ultrasound is recommended. 2. Asymmetry in the medial left breast, posterior depth, seen in the left CC pr ojection. The study is incomplete. A diagnostic mammogram and a diagnostic ultr asound are recommended. BI-RADS 0: Incomplete-Need additional imaging evaluation.
== END 2025-02-06 11:35 | disposition home or self-care (01) ==
LOC: MICIMG 11:35
PROVIDERS: PCP Family Medicine; Visit Provider Physician Assistant
DX: Z12.31 Encounter for screening mammogram for malignant neoplasm of breast (principal); R92.8 Other abnormal and inconclusive findings on diagnostic imaging of breast
CPT/HCPCS: 77063; 77067

== ENCOUNTER 2025-05-04 08:51 | Outpatient (CLI) | payer MEDICARE, SELFPAY ==
--- NOTE | ~2025-05-04 | MMUS_ITS ---
EXAMINATION: US breast RT limited, MM diagnostic [facility] BI w justa HISTORY: Additional imaging TECHNIQUE: Craniocaudal and mediolateral oblique 3-D tomosynthesis images were obtained and synthetic 2-D images were generated. CAD analysis was submitted and interpreted. Grayscale sonography over the area(s) of interest with color Doppler if there is a finding. COMPARISON: February 06 BREAST PARENCHYMAL COMPOSITION: Not Dense: There are scattered areas of fibroglandular MAMMOGRAM FINDINGS: NOTE: When evaluating the screening left mammogram before ultrasound was performed, I noticed that the asymmetry question on the screening study was on the very most inferior cut on tomography. As it was thought to be a skin lesion, skin lesions in the inferior breasts were marked, and the structure in question does, in fact, represent a skin lesion. A small circumscribed mass persists in the anterior 9:00 right breast. There are no suspicious calcifications. No unexplained architectural distortion is seen. There are no skin or nipple abnormalities identified. There is no adenopathy seen on the images submitted. ULTRASOUND FINDINGS: Sonography through the 9:00 right breast demonstrates a simple cyst with a maximum dimension of 6 mm. This accounts for the mammographic mass. IMPRESSION: No mammographic or sonographic evidence to suggest malignancy is seen. The patient may return to screening mammography as per ACR guidelines. BI-RADS 2 - Benign. Reviewed, dictated and finalized at location C. AND [employer]OV[employer] IMPRESSION: No mammographic or sonographic evidence to suggest malignancy is seen. The joann ent may return to screening mammography as per ACR guidelines. BI-RADS 2 - Benign.
== END 2025-05-04 08:52 | disposition home or self-care (01) ==
LOC: MICIMG 08:53
PROVIDERS: PCP Family Medicine; Visit Provider Physician Assistant
DX: R92.8 Other abnormal and inconclusive findings on diagnostic imaging of breast (principal)
CPT/HCPCS: 76642; 77062; 77066; G0279

== ENCOUNTER 2025-05-18 13:46 | Emergency (ER) | payer MEDICARE, SELFPAY ==
[2025-05-18 14:02] VITALS: BP 173/94; PULSE 65; RESP 16; TEMP 36.6; O2SAT 100
--- NOTE | 2025-05-18 14:58 | ED_ITS ---
HPI - Skin/Abscess/Foreign Bdy General Chief complaint: Skin/Abscess/Foreign Body Stated complaint: Bites on arms and back Time Seen by Provider: 05/18/25 14:58 Source: patient, RN notes reviewed and old records reviewed Mode of arrival: ambulatory Limitations: no limitations History of Present Illness HPI narrative: 80-year-old female presents to the [facility] with insect bites to her arms, back, legs. States this started on Wednesday, was seen at a urgent care in [facility] and was given a steroid shot and hydroxyzine. States that neither is been helping. Onset (ago): day(s) (2) Treatments prior to arrival: corticosteroid and other Related Data Allergies Allergy/AdvReac Type Severity Reaction Status Date / Time cyclobenzaprine Allergy Intermediate Nausea and Verified 05/18/25 14:08 Vomiting morphine Allergy Intermediate nausea and Verified 05/18/25 14:08 vomiting codeine Allergy Mild Nausea and Verified 05/18/25 14:08 Vomiting gabapentin AdvReac Severe Confusion Verified 05/18/25 14:08 pneumococcal vaccine AdvReac Intermediate Rash Verified 05/18/25 14:08 Review of Systems Review of Systems: All systems reviewed & are unremarkable except as noted in HPI and below Constitutional: Constitutional: Reports no additional constitutional complaints ENT: Reports system reviewed and no additional complaints, except as documented Cardiovascular: Cardiovascular: Reports no additional cardiovascular complaints, Denies chest pain and Denies dyspnea Respiratory: Respiratory: Reports no additional respiratory complaints, Denies chest congestion, Denies cough and Denies dyspnea Musculoskeletal: Musculoskeletal: Reports no additional musculoskeletal complaints Integumentary/Breasts: Skin/Breast: Reports as per HPI [facility] Past Medical History Medical History Hives Painful total knee replacement, right Hx of melanoma of skin FHx: diabetes mellitus Postmenopausal Lipid screening Transient insomnia Subacute maxillary sinusitis Psychophysiological insomnia Postoperative nausea and vomiting Pneumonia, unspecified organism Osteopenia of multiple sites Motion sickness, initial encounter Lipoma of right upper extremity IFG (impaired fasting glucose) History of melanoma Elevated blood pressure reading with diagnosis of hypertension Cough Compression fracture Adverse effect of other opioids, subsequent encounter Adverse effect of other opioids, initial encounter Acute bronchitis History of COVID-19 Lumbar vertebral fracture Blepharophimosis Droopy eyelid Osteopenia Compression fracture of L1 lumbar vertebra Malignant melanoma of neck Surgical History Surgical History S/P excision of lipoma H/O melanoma excision Family History Family History Mother Hypertension Asthma Family history of diabetes mellitus in first degree relative Family history of heart disease in male family member before age 55 Sibling Hypertension Family history of diabetes mellitus in first degree relative Depression Other Diabetes mellitus Social History Social History Social History: Smoking status: Never smoker Second hand tobacco smoke exposure: No Alcohol intake: never Substance use: never Substance use type: does not use Lack of Transportation: No Lack of Food: Never True Current Housing: I Have Housing Concerned About Future Housing: No Difficulty Paying Gas/Electric Bills: No Difficulty Paying for Meds: No Currently Unemployed: No Education: High School Diploma/GED Difficulty w/ Childcare or Family Care: No Living arrangements: alone Occupation/Education: retired Gender identity (if verbalized by the patient): Female Sexual Orientation (if Verbalized by the Patient): Straight or Heterosexual Spiritual care concerns: No Comments At the time of my signature, I reviewed and agree with the nursing past medical, surgical, social, and family history. There is no relevant family history pertinent to the patient complaint. Exam Const: General: cooperative, healthy appearing, comfortable, no acute distress, well developed, alert and well nourished Nutritional Appearance: well nourished and obese Orientation/consciousness: patient oriented x3 Limitations: no limitations HENMT: Head: normal to inspection Eyes: General: appearance normal, both eyes and all related structures Alignment and Position: alignment normal Neck: Neck: normal visual inspection, full ROM, no lymphadenopathy and no meningeal signs Chest: Chest palpation & inspection: normal inspection of the chest Resp: Effort & Inspection: normal respiratory effort and able to speak in complete sentences Auscultation: clear to auscultation bilaterally, no crackles, no rales, no rhonchi and no wheezes Cardio: Rate: regular rate Skin: General skin exam: normal color and no rashes or lesions noted Rashes: rashes noted Other: Large red raised what appears to be insect bites to bilateral posterior arms, back. Each approximately 1 to 1.5 cm circular. No signs of cellulitic changes Neuro: General: patient oriented x3, gait normal, moves all extremities and no meningeal signs Cognition (Neuro): normal cognition Speech: normal speech Gait exam (Neuro): Normal gait present Extrem: General: normal to inspection, full ROM, capillary refill normal and normal gait Psych: Appearance: grossly normal and well kempt Mental Status: mental status grossly normal Speech and movement: Normal speech and movement present and Clear speech present Affect: normal affect Attitude: cooperative Course Course Level of Care: Express Care Visit Vital Signs Vital signs: Vital Signs Temperature 97.9 F 05/18/25 14:02 Pulse Rate 65 05/18/25 14:02 Respiratory Rate 16 05/18/25 14:02 Blood Pressure 173/94 H 05/18/25 14:02 Pulse Oximetry 100 05/18/25 14:02 Temperature 97.9 F 05/18/25 14:02 Pulse Rate 65 05/18/25 14:02 Respiratory Rate 16 05/18/25 14:02 Blood Pressure 173/94 H 05/18/25 14:02 Pulse Oximetry 100 05/18/25 14:02 reviewed MDM MDM Narrative Medical decision making narrative: Patient sitting in exam room. Patient is nontoxic, vitals are stable except blood pressure. Patient states that she does take her blood pressure medication. Patient presents with continued rash after getting a steroid shot in taking hydroxyzine. Patient appears to have bedbug bites. But discussed over-the- counter products, will prescribe triamcinolone to help with the itching. Discussed cleaning anything that she had when she was at her relative's house Patient is appropriate for outpatient treatment with close follow-up Discharge instructions reviewed with patient, as well as provided in writing per nursing staff. The instructions also include specific and strict return/GO TO THE ER as well as f/u information. All questions have been answered, and the patient deny any further questions with discharge and discharge plan. Some parts of this dictation were generated by voice recognition software and may contain typographical and/or grammatical inaccuracies. Differential Diagnosis Differential Diagnosis: Differential diagnostic considerations for skin/abscess/foreign body issues include abscess of skin or subcutaneous tissue, viral exanthem, dermatophytosis, urticaria, herpes zoster, allergic reaction to drug, cellulitis, eczema, insect bites, impetigo, contact dermatitis, vasculitis. Medical Records I have reviewed the following patient records and this information was taken into consideration when formulating the assessment and plan.: previous ER visits and previous clinic visits Discharge Plan Discharge Clinical Impression: Bedbug bite Patient Disposition: Home Condition: Stable Instructions: Antibiotic Form, Insect Bite or Sting (ED) Additional Instructions: Today your blood pressure was 173/94. Please follow-up with your primary care provider within 2 weeks to have this rechecked. The most important part of your care is follow up with Primary care provider. Take either the Benadryl or hydroxyzine you are prescribed per package instruction Take Zyrtec every day Take Pepcid 20mg daily for 7 days Apply small amount of the steroid cream as prescribed twice a day Avoid hot showers, Take cool showers. Hot showers will make rashes worse Apply cool compresses every 2-3 hours for 15 minutes Go to the ER for new or worsening symptoms such as shortness of breath. Patient Language: Chinese Prescriptions: New triamcinolone acetonide 0.1 % cream 1 applic topical BID Qty: 80 0RF No Action alendronate 70 mg tablet See Rx Instructions .ROUTE .COMPLEX Qty: 12 1RF Dose Instruction: TAKE 1 TABLET BY MOUTH ONE TIME PER WEEK Rx Instructions: TAKE 1 TABLET BY MOUTH ONE TIME PER WEEK losartan 25 mg tablet See Rx Instructions .ROUTE .COMPLEX Qty: 90 2RF Dose Instruction: TAKE 1 TABLET BY MOUTH EVERY DAY Rx Instructions: TAKE 1 TABLET BY MOUTH EVERY DAY Follow-up/Referrals: China Barth PA-C [Primary Care Provider, [facility]] - 2 Weeks Clinical Impression: Bedbug bite Time of Disposition: 15:08
== END 2025-05-18 15:10 | disposition home or self-care (01) ==
PROVIDERS: Emergency Provider Nurse Practitioner; PCP Physician Assistant
DX: S40.861A Insect bite (nonvenomous) of right upper arm, initial encounter (principal); S40.862A Insect bite (nonvenomous) of left upper arm, initial encounter; S20.469A Insect bite (nonvenomous) of unspecified back wall of thorax, initial encounter; W57.XXXA Bitten or stung by nonvenomous insect and other nonvenomous arthropods, initial encounter; R73.01 Impaired fasting glucose; M85.80 Other specified disorders of bone density and structure, unspecified site; Z86.16 Personal history of COVID-19; Z85.820 Personal history of malignant melanoma of skin
CPT/HCPCS: 99213; G0463